=== PATIENT | female | born 1955 | race Caucasian/White ===

== ENCOUNTER → 2016-04-12 | Outpatient (CLI) | payer BC ==
[~2016-04-12] MED LIST: ASCO100025 PO; ATEN100T PO; CHOL20003 PO; CLON0.1T PO; CLON0.2T PO; CYAN50008 PO; ESTR1PAT4 TD; FOLI1TAB10 PO; GLUTATHIONE PO; HYDR-3729 PO; HYDR25TA4 PO; IBUP-1773 PO; L. A1CAP7 PO; LISI40TA PO; MTHF PO; OMG1KC PO; POTA10TA10 PO; PREGNENOLONE PO; PROG100C6 PO; S-AD400T3 PO; SERENITY PO; THYR60TA2 PO; [UNRECOGNIZED DRUG - OTHER] PO; [UNRECOGNIZED DRUG - OTHER] PO
--- OUTSIDE RECORDS SUMMARY | 2016-04-12 07:34 | XMS REPORT | Continuity of Care Document ---
Author Author [facility] Organization [facility] Address Unknown Phone Unavailable Care Team Providers Care Trace Clerk Name Role Phone Rachana Davalos PCP [phone] Source Comments Some departments are not documenting in the electronic medical record. If you do not see the information that you expected, contact Release of Information in the Health Information Management department at [phone] for further assistance in locating additional records.[facility] Active Allergies and Adverse Reactions No Known Allergies Current Medications Prescription Sig. Disp. Refills Start End Date Status Date progesterone, Take 100 mg by mouth Active micronized(+) daily. (PROMETRIUM) 100 mg capsule cloNIDine (CATAPRES-TTS Apply 1 Patch to top of Active 2) 0.2 mg/day patch skin as directed every 7 days. atenolol (TENORMIN) 100 Take 100 mg by mouth Active mg tablet daily. lisinopril (PRINIVIL; Take 40 mg by mouth Active ZESTRIL) 20 mg tablet daily. DOCOSAHEXANOIC ACID/EPA Take by mouth. Active (FISH OIL PO) cyanocobalamin (VITAMIN Inject 1,000 mcg to Active B-12, RUBRAMIN) 1,000 area(s) as directed every mcg/mL injection 30 days. magnesium Active Lactobacillus rhamnosus Take by mouth twice Active GG (LACTOBACILLUS daily with meals. RHAMNOSUS (GG)) 15 billion cell cpSP Prasterone (DHEA) (DHEA) Take by mouth. Active 50 mg cap GLUTATHIONE PO Take by mouth. Active folic acid (FOLVITE) 1 mg Take 1 mg by mouth daily. Active tablet ERGOCALCIFEROL (VITAMIN Take by mouth. Active D2) (VITAMIN D PO) ASCORBATE CALCIUM Take by mouth. Active (VITAMIN C PO) estradiol(+) Apply 1 Patch to top of Active (VIVELLE-DOT) 0.1 mg/24 skin as directed twice hr patch weekly. MULTIVITAMINS WITH Take by mouth. Active FLUORIDE (MULTI-VITAMIN PO) hydrochlorothiazide Take 25 mg by mouth Active (HYDRODIURIL) 25 mg daily. tablet triamcinolone acetonide Apply to affected area Active (KENALOG) 0.1 % topical twice daily. 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
== END ==
LOC: LAB 07:30
PROVIDERS: ATTEND Nurse Practitioner Family
DX: E16.2 Hypoglycemia, unspecified (principal)
CPT/HCPCS: 36415; 82951; 82952; 82962; 83525

== ENCOUNTER 2016-12-03 05:42 | Outpatient (CLI) | payer BC ==
[~2016-12-03] VITALS: Ht 172.7 cm; Wt 65.3 kg
[2016-12-03] MEDS ORDERED: PARO7.5C PO (16:08)
[2016-12-03] MEDS ORDERED: MULT-1067 PO (16:08)
[2016-12-03] MEDS ORDERED: FLUT16SP22 NS (16:08)
[2016-12-03] MEDS ORDERED: SULF1TAB35 PO (16:08)
[2016-12-03] MEDS ORDERED: [UNRECOGNIZED DRUG - OTHER] SQ (16:08)
[2016-12-03] MEDS ORDERED: LIRA0.6P3 SQ (16:08)
[2016-12-03] MEDS ORDERED: LEVO1CAP2 PO (16:08)
== END 2016-12-03 16:09 ==
LOC: PREOP 05:42
PROVIDERS: ATTEND Surgery
DX: Z01.818 Encounter for other preprocedural examination (principal); L02.31 Cutaneous abscess of buttock

== ENCOUNTER 2016-12-06 08:42 | Day surgery (SDC) | payer BC ==
[~2016-12-06] VITALS: Ht 172.7 cm; Wt 65.3 kg
[~2016-12-06 08:42] MED LIST changes: +FLUT16SP22 NS; +LEVO1CAP2 PO; +LIRA0.6P3 SQ; +MULT-1067 PO; +PARO7.5C PO; +SULF1TAB35 PO; +[UNRECOGNIZED DRUG - OTHER] SQ
--- OUTSIDE RECORDS SUMMARY | 2016-12-06 08:47 | XMS REPORT | Clinical Summary ---
Author Author [facility] Organization [facility] Address Unknown Phone Unavailable Care Team Providers Care Computer System Validation Specialist Name Role Phone PCP Unavailable Source Comments Some departments are not documenting in the electronic medical record. If you do not see the information that you expected, contact Release of Information in the Health Information Management department at [phone] for further assistance in locating additional records.[facility] Allergies No Known Allergies Current Medications Prescription Sig. 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
[2016-12-06] MEDS ORDERED: ceFAZolin 1,000 MG (ANCEF) VIAL ONE ×2 (09:18→09:22)
[2016-12-06] MEDS ORDERED: NS (IVPB) 50 ML ONE ×2 (09:19→09:22)
[2016-12-06] MEDS ORDERED: ceFAZolin 1 GM/NS 50 ML IVPB IV ONE ×2 (09:30)
[2016-12-06 09:58] VITALS: BP 175/95
[2016-12-06] MEDS ORDERED: LACTATED RINGERS 1,000 ML IV PRN (10:12)
[2016-12-06] MEDS ORDERED: BUP/EPI 0.5% 1:200,000 (MARCAINE) 10ML VIAL IJ ONE (10:43)
[2016-12-06] MEDS ORDERED: proPOfol 200 MG/20 ML (DIPRIVAN) VIAL IV ONE (10:50)
[2016-12-06] MEDS ORDERED: LIDOCAINE PF 2% 5 ML (XYLOCAINE) VIAL ONE (10:50)
[2016-12-06] MEDS ORDERED: MIDAZOLAM 2 MG/2 ML (VERSED) VIAL ONE (10:50)
[2016-12-06] MEDS ORDERED: fentaNYL INJECTION 100 MCG/2 ML AMP ONE (10:50)
[2016-12-06] MEDS ORDERED: ONDANSETRON 4 MG/2 ML (SDV) Z0FRAN ONE (10:53)
[2016-12-06] MEDS ORDERED: SEVOFLURANE (ULTANE) 15 ML INHAL SOLN ONE ×5 (10:53→12:41)
[2016-12-06] MEDS ORDERED: LACTATED RINGERS 1,000 ML IV ONE ×2 (10:53→11:47)
--- NOTE | 2016-12-06 11:14 | Progress Note-Pre Operative ---
Pre-Operative Progress Note H&P Reviewed The H&P was reviewed, patient examined and no changes noted. Date Seen by Provider: Dec 06, 2016 Time Seen by Provider: 11:12 Date H&P Reviewed: Dec 06, 2016 Time H&P Reviewed: 11:15 Pre-Operative Diagnosis: left buttock abscess, screening colonoscopy REGINO MCFADDEN APRN Dec 06, 2016 11:14 am
[2016-12-06] MEDS ORDERED: HYDR-3816 PO (12:27)
[2016-12-06] MEDS ORDERED: ONDANSETRON 4 MG/2 ML (SDV) Z0FRAN IVP PRN (12:30)
[2016-12-06] MEDS ORDERED: morphine INJ 10 MG/ML 1ML (SYR OR VIAL) IVP PRN (12:30)
[2016-12-06] MEDS ORDERED: HYDROcodone/APAP 5 MG/325 MG (LORTAB) TAB PO ONE (12:30)
[2016-12-06] MEDS ORDERED: ACETAMINOPHEN 325 MG TABLET/CAPLET (TYLENOL) PO PRN (12:30)
--- NOTE | 2016-12-06 12:31 | Discharge Inst-Surgical ---
D/C Lap Instructions-KIDO New, Converted, or Re-Newed RX: RX on Chart Follow Up Appt in 2 weeks Activity as tolerated No driving for 24 hours No [address] while on pain medications Incentive Spirometry use every 2 hours while awake High Fiber Diet 25g or more per day Avoid Alcohol, Caffeine, Spicy [place] and Acid foods. Drink 64 fluid oz or more of fluids per day. Bathing instructions: May shower Operative Area Clean/Dry; Keep incision clean/dry Symptoms to Report: Fever over 101 degree F, Nausea/Vomiting If any problems/questions: Contact your physician or go to Emergency Room REGINO MCFADDEN APRN Dec 06, 2016 12:30
--- NOTE | 2016-12-06 12:37 | Progress Note-Post Operative ---
Post-Operative Progess Note Surgeon (s)/Emotional Support Teacher (s) Surgeon Dr. Gabriel Plaza M.D. Emotional Support Teacher: Valdemar Mcfadden APRN Pre-Operative Diagnosis left buttock abscess, screening colonoscopy Post-Operative Diagnosis Left buttock cyst, Melanosis coli, pedunculated rectal polyp, chronic stage II external and internal hemorrhoids Procedure & Operative Findings Date of Procedure 12/06/16 Procedure Performed/Findings Excision of left buttock cyst and Colonoscopy with snare polypectomy Anesthesia Type GET Estimated Blood Loss Estimated blood loss (mL): Minimal Specimens/Packing Specimens Removed Left Buttock Cyst VALDEMAR MCFADDEN TIRE BUFFER Dec 06, 2016 12:37
[2016-12-06 13:47] VITALS: BP 176/93
[2016-12-06 14:06] VITALS: BP 189/95
[2016-12-06 14:40] VITALS: BP 147/86
[2016-12-06 15:06] VITALS: BP 147/86
[2016-12-06 15:42] VITALS: BP 147/86
--- NOTE | 2016-12-07 02:24 | OPERATIVE REPORT ---
DATE OF SERVICE: 12/06/2016 ATTENDING TOOL MACHINE SET UP OPERATOR: Rachana Davalos D.N.P. PREOPERATIVE DIAGNOSES: Left buttock infected inclusion cyst. Screening colonoscopy. POSTOPERATIVE DIAGNOSES: Chronically infected inclusion cyst of the left buttock, approximately 2 cm in size. Chronic stage II external and internal hemorrhoids. Diffuse melanosis coli. Pedunculated polyp of the rectum, approximately 3 to 4 mm in size. PROCEDURE: Excision left buttock cyst, 2 cm in size, colonoscopy with snare polypectomy. SURGEON: Dr. Bray. ANESTHESIA: General laryngeal mask airway. ESTIMATED BLOOD LOSS: Minimal. FINDINGS: Left buttock chronic infected inclusion cyst, approximately 2 mm in size. Chronic stage II external and internal hemorrhoids, diffuse melanosis coli due to [id number]-ibi-uqymhsq laxative, pedunculated polyp of the rectum approximately 3 to 4 mm in size, which was fully excised at the stomach. The remainder of the colon was normal. DISPOSITION: The patient tolerated the procedure well. INDICATIONS: The patient is a 60-year-old female who was referred over to us for pain in the left buttock. She reports that she had noted a bump on the left buttock and was [place] an airplane and this did open and drained a bloody drainage. She has been seen by her physician and cultured and found to be consistent with Staph aureus. She was on antibiotics and the lesion had decreased in size; however, has persisted and continued to be painful. Upon examination, there was a palpable lesion in the left buttock, which was hard consistent with a chronic abscess and inclusion cyst, which is approximately 2 cm in size. She is also in need of a colonoscopy. Her last colonoscopy was approximately 10 years ago. She does have a significant history of constipation and does take a number of vywl-gbg-cpinexo laxatives. DESCRIPTION OF PROCEDURE: The patient was brought to the operating room, laid supine on the table. After adequate IV pain and sedative medications and general laryngeal mask airway intubation, the patient was placed in lithotomy position and the perineum was prepped and draped in a standard surgical fashion. The lesion was then anesthetized using 0.5% Marcaine with epinephrine and a skin incision made using a 15 blade. A chronic-appearing cyst as well as chronic inflammatory granulation tissue was identified. This was totally excised using Metzenbaum scissors to the subcutaneous fat. Good hemostasis was achieved using electrocautery. The subcutaneous tissue was then reapproximated using 3-0 Vicryl interrupted sutures. Skin was closed using 4-0 nylon interrupted sutures. The wound was then cleaned and covered with a sterile dressing. The patient tolerated this portion of the procedure well. She will be instructed to keep the area clean and dry and to finish out her course of antibiotics. We will have her follow up in approximately one week to remove the sutures. Under the same anesthesia, we then proceeded with the colonoscopy portion of the procedure. A digital rectal examination was performed, which revealed chronic stage II external and internal hemorrhoids, not actively edematous or inflamed and no bleeding. Normal sphincter tone was felt and there were no palpable masses. The endoscope was then intubated into the anus and rectum and gently insufflated. We advanced the endoscope through the valves of Hutchins of the rectum and at approximately the second valve, a pedunculated polyp approximately 3 to 4 mm in size was identified. This was excised at its stalk using a snare and electrocautery with visualization of good hemostasis. The polyp was sent to pathology. We then proceeded to the sigmoid colon where no diverticulosis was identified. There was a significant melanosis coli distributed throughout the entirety of the colon and rectum consistent with chronic laxative use. Endoscope was then advanced to the remainder of the descending, transverse and ascending colon to the cecum. No other lesions were identified. The endoscope was then slowly withdrawn while taking a second look and suctioning of residual air with no additional findings. The patient tolerated the procedure well. We will have her proceed with cessation of laxatives and to start a high-fiber diet with at least 30 grams of fiber per day as well as at least 64 fluid ounces of water daily to promote soft stools on a daily basis. We will also await the biopsy results of the polyp. Job ID: [id number] DocumentID: [id number] Dictated Date: 12/06/2016 12:52:11 Aluminum Polisher Date: 12/07/2016 02:23:30 Dictated By: EMILY BRAY MD
== END 2016-12-06 15:40 | disposition home or self-care (01) ==
LOC: SDC 08:42
PROVIDERS: ATTEND Surgery
DX: Z12.11 Encounter for screening for malignant neoplasm of colon (principal); D12.8 Benign neoplasm of rectum; K63.89 Other specified diseases of intestine; K64.1 Second degree hemorrhoids; L72.0 Epidermal cyst; K59.00 Constipation, unspecified; I10 Essential (primary) hypertension; E04.1 Nontoxic single thyroid nodule; G47.33 Obstructive sleep apnea (adult) (pediatric); Z79.899 Other long term (current) drug therapy
CPT/HCPCS: 87081; 88304; 88305

== ENCOUNTER → 2017-04-02 | Outpatient (CLI) | payer BC ==
[~2017-04-02] MED LIST changes: +HYDR-3816 PO
--- NOTE | 2017-04-02 10:58 | Diagnostic Imaging Report ---
EXAMINATION: Bilateral breast ultrasound. INDICATION: Bilateral breast lumps By history the patient has palpable lumps in both breasts. The diagnostic mammogram performed earlier today in conjunction with the study failed to show any discrete mass identified. On this exam there is a 7 x 6 x 7 MM hypoechoic lesion with through-transmission in the 1-2 o'clock position of the right breast roughly 4 CM from the nipple. This has the appearance of a small cyst. There is no other discrete solid or cystic mass identified. If clinical concern regarding a palpable abnormality persists, then biopsy should still be considered. IMPRESSION: There is a small benign-appearing cyst in the right breast. There is no other evidence of malignancy. Clinical followup is recommended. ACR BI-RADS Category 1: Negative. Dictated on workstation # [id number]
--- NOTE | 2017-04-02 12:29 | Diagnostic Imaging Report ---
EXAMINATION: Digital mammogram bilateral screening. INDICATION: Screening. COMPARISON: This study was compared to the prior exams of 09/30/2013, 02/16/2013, and 01/25/2012. The current study was also evaluated with a Computer Aided Detection (CAD) system. Originally, this exam was scheduled as a screening exam. However, at the time of the study, the patient did note that she had lumps in both breasts. She felt that the lumps were stable, but she did state that her referring physician made provisions for an ultrasound examination. FINDINGS: The fibroglandular tissue in both breasts is dense. This does limit the sensitivity of this exam. When compared to the previous study, there does not appear to have been any significant change. There is no primary or secondary sign of malignancy noted. IMPRESSION: There is no evidence of malignancy. Ultrasound of both breasts is pending for further evaluation. ACR BI-RADS Category 0: Incomplete. (Needs additional imaging evaluation). Result letter will be mailed to the patient. Note: At least 10% of breast cancer is not imaged by mammography. Dictated by: Dictated on workstation # [id number]
== END ==
LOC: RAD 08:07
PROVIDERS: ATTEND Nurse Practitioner Family
DX: Z12.31 Encounter for screening mammogram for malignant neoplasm of breast (principal); N60.01 Solitary cyst of right breast
CPT/HCPCS: 77067

== ENCOUNTER → 2017-07-23 | Outpatient (CLI) | payer BC ==
[~2017-07-23] MED LIST changes: +CATHETER FLUSH 10 ML SYR IV PRN; +HYDR-34 PO; -HYDR-3816 PO; +REGADENOSON 0.4 MG/5 ML SYR (LEXISCAN) IV ONE
[2017-07-23 09:20] VITALS: BP 229/104
[2017-07-23 09:22] VITALS: BP 214/103
[2017-07-23 09:31] VITALS: BP 193/89
--- NOTE | 2017-07-24 13:32 | STRESS TEST ---
DATE OF SERVICE: 07/23/2017 PROCEDURE: Resting and post regadenoson technetium-99m Tetrofosmin SPECT CT imaging CLINICAL DIAGNOSES: Shortness of breath, hypertension. ORDERING PHYSICIAN: Kathryn Oates APRN OTHER PHYSICIAN: Dr. Mccrary. Baseline images were carried out after injection of 10.94 mCi technetium-99m Tetrofosmin. This was followed by 0.4 mg regadenoson and 30.2 mCi of technetium-99m Tetrofosmin for stress imaging. The electrocardiogram showed sinus rhythm at baseline and it did not change significantly with the regadenoson infusion. The patient noted some dizziness and a feeling of flushing following regadenoson infusion, which resolved in a few minutes. Overall, she tolerated the procedure well. Review of images at rest and following stress does not indicate any significant perfusion defects consistent with significant myocardial ischemia or infarction. Gated images show normal global left ventricular systolic function with normal regional wall motion. Left ventricular ejection fraction is calculated to be 77%. Left ventricular end diastolic volume is 39 mL. TID is absent (0.98). CONCLUSIONS: 1. No evidence of significant myocardial ischemia or infarction on this study. 2. Normal regional wall motion. 3. Normal global left ventricular systolic function with a calculated ejection fraction of 77%. Job ID: [id number] DocumentID: [id number] Dictated Date: 07/24/2017 08:20:51 Cytogeneticist Date: 07/24/2017 13:31:38 Dictated By: LEANNE MCCRARY MD, MA, FACP, FACC, MTDD
== END ==
LOC: CARD 07:38
PROVIDERS: ATTEND Nurse Practitioner Family
DX: I10 Essential (primary) hypertension (principal); E03.8 Other specified hypothyroidism; R06.09 Other forms of dyspnea
CPT/HCPCS: 78452; 93017

== ENCOUNTER → 2017-08-16 | Outpatient (CLI) | payer BC ==
[~2017-08-16] MED LIST changes: -CATHETER FLUSH 10 ML SYR IV PRN; -REGADENOSON 0.4 MG/5 ML SYR (LEXISCAN) IV ONE
== END ==
LOC: CARD 13:27
PROVIDERS: ATTEND Nurse Practitioner Family
DX: I10 Essential (primary) hypertension (principal); E03.8 Other specified hypothyroidism; R06.09 Other forms of dyspnea
CPT/HCPCS: 93306

== ENCOUNTER → 2017-09-03 | Outpatient (CLI) | payer BC ==
--- NOTE | 2017-09-03 16:07 | Diagnostic Imaging Report ---
INDICATION: Pulmonary hypertension. COMPARISON: None. FINDINGS: Two views of the chest are obtained. Heart size is mildly enlarged. There is no central venous distention. No pneumothorax, mediastinal widening or pleural fluid. Thoracic aorta is tortuous. The lungs are clear. Osseous structures appear unremarkable. IMPRESSION: No acute cardiopulmonary abnormality is suspected. There is mild cardiomegaly without evidence of failure. Dictated by: Dictated on workstation # [id number]
== END ==
LOC: RAD 15:37
PROVIDERS: ATTEND Nurse Practitioner Family
DX: I27.21 Secondary pulmonary arterial hypertension (principal); I51.7 Cardiomegaly
CPT/HCPCS: 71046

== ENCOUNTER 2017-09-16 18:16 | Observation (INO) | payer BC ==
[~2017-09-16] VITALS: Ht 172.7 cm; Wt 65.8 kg
[~2017-09-16 18:16] MED LIST changes: -CARV25TA PO; -DOXA2TAB2 PO; -ESTR1PAT75 TD; -FLUT15.88 NS; -RT-ALBUTEROL SULF 2.5 MG/3 ML PRE-MIX VIAL INH ONE
--- OUTSIDE RECORDS SUMMARY | 2017-09-16 18:20 | XMS REPORT ---
Author Author [facility] Organization [facility] Address [address] [place] [address] Care Team Providers Care Dry Wall Finisher Name Role Phone DREA BLOOM Unavailable PROBLEMS Type Condition ICD9-CM Code EPM96-HR Code Onset Dates Condition Status SNOMED Code Problem Adjustment disorder with depressed mood F43.21 Active [id number] ALLERGIES No Information ENCOUNTERS Encounter Location Date Diagnosis [facility] [id number] [place] [phone] Jan, Adjustment disorder with depressed mood F43.21 [facility] [id number] [place] [phone] Jan, Adjustment disorder with depressed mood F43.21 [facility] [id number] [place] [phone] Dec, Adjustment disorder with depressed mood F43.21 [facility] [id number] [place] [phone] Feb, [facility] [id number] [place] [phone] Jan, [place] [id number] [place] [phone] Jan, IMMUNIZATIONS No Known Immunizations SOCIAL HISTORY Never Assessed REASON FOR VISIT BH intake, Depression. PLAN OF CARE Activity Details Follow Up 1 Week Reason:depression VITAL SIGNS MEDICATIONS Medication Instructions Dosage Frequency Start Date End Date Duration Status Atenolol Active Deplin Active Brisdelle Active Hydrochlorothiazide Active Fish Oil Active SMZ-TMP DS Active Victoza Active B-12 Active Vitamin C Active Thyroid Active Vitamin D-3 Active Potassium Chloride Active Lisinopril Active Fluticasone Furoate Active Clonidine HCl Active Triamcinolone Acetonide Active RESULTS No Results PROCEDURES Procedure Date Ordered Result Body Site Psych diagnostic evaluation, new patient Jan 14, 2017 INSTRUCTIONS MEDICATIONS ADMINISTERED No Known Medications
--- OUTSIDE RECORDS SUMMARY | 2017-09-16 18:20 | XMS REPORT | Clinical Summary ---
Author Author [facility] Organization [facility] Address Unknown Phone Unavailable Care Team Providers Care Milking Machine Technician Name Role Phone Carlos Davalos MD Unavailable Alison Godinez MD Unavailable Harjinder Jones MD Unavailable Rachana Davalos APRN PCP Source Comments Some departments are not documenting in the electronic medical record. 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
[2017-09-16] MEDS ORDERED: niCARdipine IV FOR DRIP 50 MG KIT ONE (18:26)
[2017-09-16] MEDS ORDERED: NS (IVPB) 250 ML ONE (18:27)
[2017-09-16 18:29] LABS: BASOPHILS % (AUTO) 0 % (0-10); EOSINOPHILS # (AUTO) 0.2 10^3/uL (0.0-0.3); EOSINOPHILS % (AUTO) 2 % (0-10); HEMATOCRIT 39 % (35-52); HEMOGLOBIN 13.8 G/DL (11.5-16.0); LYMPHOCYTES % (AUTO) 24 % (12-44); MEAN CORPUSCULAR HEMOGLOBIN 29 PG (25-34); MEAN CORPUSCULAR HGB CONC 36 G/DL (32-36); MEAN CORPUSCULAR VOLUME 82 FL (80-99); MEAN PLATELET VOLUME 9.3 FL (7.4-10.4); MONOCYTES # (AUTO) 0.6 X 10^3 (0.0-1.0); MONOCYTES % (AUTO) 8 % (0-12); NEUTROPHILS # (AUTO) 5.5 X 10^3 (1.8-7.8); NEUTROPHILS % (AUTO) 67 % (42-75); PLATELET COUNT 263 10^3/uL (130-400); RED BLOOD COUNT 4.74 10^6/uL (4.35-5.85); RED CELL DISTRIBUTION WIDTH 12.7 % (10.0-14.5); WHITE BLOOD COUNT 8.2 10^3/uL (4.3-11.0)
--- NOTE | 2017-09-16 18:29 | ED Cardiac General ---
History of Present Illness General Chief Complaint: Cardiac/General Problems Stated Complaint: HIGH BP Source: patient Exam Limitations: no limitations History of Present Illness Date Seen by Provider: Sep 16, 2017 Time Seen by Provider: 18:26 Initial Comments o ER with a global headache, nausea, hot flash and high blood pressure. She states that her blood pressure always runs high, she's taken "several" doses of her 0.1 mg clonidine tablets today in an attempt to lower the blood pressure. blood pressure on arrival on 2 different readings is 245/141 with heart rate of 59 sinus without ectopy. Timing/Duration: 4-6 hours Severity: moderate Prior CP/Workup: no prior chest pain NTG SL LIFE SCIENCE TECHNICAL OFFICER: No ASA po LIFE SCIENCE TECHNICAL OFFICER: No Associated Systoms: Headaches Allergies and Home Medications Allergies Coded Allergies: No Known Drug Allergies (Unverified , 08/02/15) Home Medications Ascorbic Acid 1,000 Mg Tablet.er, 1,000 MG PO DAILY, (Reported) Atenolol 100 Mg Tablet, 100 MG PO DAILY, (Reported) Cholecalciferol (Vitamin D3) 2,000 Unit Capsule, 2,000 UNIT PO DAILY, (Reported) Clonidine HCl 0.2 Mg Tablet, 0.2 MG PO TID PRN for BLOOD PRESSURE, (Reported) Cyanocobalamin (Vitamin B-12) 5,000 Mcg Tab.rapdis, 5,000 MCG PO DAILY, ( Reported) Fluticasone Propionate 16 Gm [place].susp, 2 SPRAY NS HS, (Reported) Hydrochlorothiazide 25 Mg Tablet, 25 MG PO DAILY, (Reported) Hydrocodone Bit/Acetaminophen 1 Each Tablet, 1 EACH PO Q4H PRN for PAIN-MILD TO MODERATE Prescribed by: REGINO MCFADDEN on 12/06/16 1227 L. Acidophilus/Bifid. Animalis 1 Each Cap.sprink, 1 EACH PO HS, (Reported) Levomefolate/Algal Oil 1 Each Capsule, 1 EACH PO DAILY, (Reported) Liraglutide 0.6 Mg/0.1 Ml Pen.injctr, 1.8 MG SQ HS, (Reported) Lisinopril 40 Mg Tablet, 40 MG PO DAILY, (Reported) Multivitamin/Iron/Folic Acid 1 Each Tablet, 1 EACH PO DAILY, (Reported) [place] 3 Polyunsat Fatty Acids 1,000 Mg Cap, 1,000 MG PO DAILY, (Reported) Paroxetine Mesylate 7.5 Mg Capsule, 7.5 MG PO HS, (Reported) Potassium Chloride 10 Meq Tablet.er, 10 MEQ PO DAILY, (Reported) S-Adenosylmethionine Sul Tosyl 400 Mg Tablet, 800 MG PO DAILY, (Reported) take 2 (400mg) tab Sulfamethoxazole/Trimethoprim 1 Each Tablet, 1 EACH PO BID, (Reported) Thyroid,Pork 60 Mg Tablet, 60 MG PO DAILY, (Reported) [5 Mthf] , 1 TAB PO BID, (Reported) [Gsh Glutathione] , 250 MG PO AC&PC, (Reported) [Pregnenolone] 50mg , 100 MG PO DAILY, (Reported) take 2 (50mg) tabs [Serenity] , 100 MG PO HS, (Reported) [glutithione] , 500 MG SQ M/TH, (Reported) [gut cleanse] , 1 TAB PO BID, (Reported) Patient Home Medication List Home Medication List Reviewed: Yes Review of Systems Constitutional: see HPI EENTM: No Symptoms Reported Respiratory: No Symptoms Reported Cardiovascular: No Symptoms Reported Gastrointestinal: No Symptoms Reported Genitourinary: No Symptoms Reported Musculoskeletal: no symptoms reported Endocrine: No Symptoms Reported Past Flefhbc-Fkncfh-Xquqss Hx Patient Social History Recent Foreign Travel: No Contact w/Someone Who Travel: No Recent Hopitalizations: No Seasonal Allergies Seasonal Allergies: Yes Past Medical History Tubal Ligation Sleep Apnea Currently Using CPAP: Yes Hypertension Reproductive Disorders: No Female Reproductive Disorders: Menstrual Problems Sexually Transmitted Disease: No HIV/AIDS: No Arthritis Anxiety Physical Exam Vital Signs Vital Signs - First Documented 09/16/17 18:20 Temp 98.4 Pulse 60 Resp 18 B/P (MAP) 245/141 (175) Pulse Ox 100 O2 Delivery Room Air Capillary Refill : General Appearance: No Apparent Distress, WD/WN, Other (moves all extremities, speech is clear, no neurologic deficit) HEENT: PERRL/EOMI, TMs Normal Neck: Full Range of Motion, Normal Inspection Respiratory: Normal Breath Sounds, No Accessory Muscle Use, No Respiratory Distress Gastrointestinal: Normal Bowel Sounds, Non Tender, Soft Neurologic/Psychiatric: Alert, Oriented x3, No Motor/Sensory Deficits Skin: Normal Color, Warm/Dry Other comments she does keep her eyes closed but opens them to talk. She has a GCS of 14 because, losing 1 point for that. Progress/Results/Core Measures Results/Orders Lab Results Laboratory Tests Test 09/16/17 18:20 09/16/17 19:23 Range/Units White Blood Count 8.2 4.3-11.0 10^3/uL Red Blood Count 4.74 4.35-5.85 10^6/uL Hemoglobin 13.8 11.5-16.0 G/DL Hematocrit 39 35-52 % Mean Corpuscular Volume 82 80-99 FL Mean Corpuscular Hemoglobin 29 25-34 PG Mean Corpuscular Hemoglobin Concent 36 32-36 G/DL Red Cell Distribution Width 12.7 10.0-14.5 % Platelet Count 263 130-400 10^3/uL Mean Platelet Volume 9.3 7.4-10.4 FL Neutrophils (%) (Auto) 67 42-75 % Lymphocytes (%) (Auto) 24 12-44 % Monocytes (%) (Auto) 8 0-12 % Eosinophils (%) (Auto) 2 0-10 % Basophils (%) (Auto) 0 0-10 % Neutrophils # (Auto) 5.5 1.8-7.8 X 10^3 Lymphocytes # (Auto) 2.0 1.0-4.0 X 10^3 Monocytes # (Auto) 0.6 0.0-1.0 X 10^3 Eosinophils # (Auto) 0.2 0.0-0.3 10^3/uL Basophils # (Auto) 0.0 0.0-0.1 10^3/uL Sodium Level 129 L 135-145 MMOL/L Potassium Level 3.2 L 3.6-5.0 MMOL/L Chloride Level 93 L 98-107 MMOL/L Carbon Dioxide Level 23 21-32 MMOL/L Anion Gap 13 5-14 MMOL/L Blood Urea Nitrogen 12 7-18 MG/DL Creatinine 0.71 0.60-1.30 MG/DL Estimat Glomerular Filtration Rate > 60 BUN/Creatinine Ratio 17 Glucose Level 127 H 70-105 MG/DL Calcium Level 9.4 8.5-10.1 MG/DL Total Bilirubin 0.6 0.1-1.0 MG/DL Aspartate Amino Transf (AST/SGOT) 20 5-34 U/L Alanine Aminotransferase (ALT/SGPT) 15 0-55 U/L Alkaline Phosphatase 79 40-136 U/L Troponin I < 0.30 <0.30 NG/ML B-Type Natriuretic Peptide 156.0 H <100.0 PG/ML Total Protein 7.0 6.4-8.2 GM/DL Albumin 4.7 H 3.2-4.5 GM/DL Urine Color YELLOW Urine Clarity CLEAR Urine pH 8 5-9 Urine Specific [place] 1.010 L 1.016-1.022 Urine Protein NEGATIVE NEGATIVE Urine Glucose (UA) NEGATIVE NEGATIVE Urine Ketones NEGATIVE NEGATIVE Urine Nitrite NEGATIVE NEGATIVE Urine Bilirubin NEGATIVE NEGATIVE Urine Urobilinogen NORMAL NORMAL MG/DL Urine Leukocyte Esterase NEGATIVE NEGATIVE Urine RBC (Auto) NEGATIVE NEGATIVE Urine RBC RARE /HPF Urine WBC RARE /HPF Urine Crystals NONE /LPF Urine Bacteria NEGATIVE /HPF Urine Casts NONE /LPF Urine Mucus NEGATIVE /LPF Urine Culture Indicated NO My Orders Orders - VAHE BOWDEN APRN Ns (Ivpb) (Sodium C... W/Nicardipine Iv (09/16/17 18:30) Cbc With Automated Diff (09/16/17 18:25) Comprehensive Metabolic Panel (09/16/17 18:25) Ua Culture If Indicated (09/16/17 18:25) Chest 1 View, Ap/Pa Only (09/16/17 18:25) Ct Head Wo (09/16/17 18:25) Iv Heplock-Insert (Order) (09/16/17 18:25) Nicardipine Iv For Drip (Cardene I.V. (O (09/16/17 18:26) Ns (Ivpb) (Sodium Chloride 0.9%) (09/16/17 18:27) Ondansetron Injection (Zofran Injectio (09/16/17 18:45) Ondansetron Injection (Zofran Injectio (09/16/17 19:30) Promethazine Injection (Phenergan Injec (09/16/17 19:30) BNP (09/16/17 19:30) Furosemide Injection (Lasix Injection) (09/16/17 19:30) Troponin I (09/16/17 19:49) Ekg Tracing (09/16/17 19:50) Amlodipine Tablet (Norvasc Tablet) (09/16/17 20:15) Medications Given in ED Current Medications Medications Dose Ordered Sig/Christian Route Start Time Stop Time Status Last Admin Dose Admin Amlodipine Besylate 5 mg ONCE ONCE PO 09/16/17 20:15 09/16/17 20:16 DC 09/16/17 20:21 5 MG Furosemide 40 mg ONCE ONCE IVP 09/16/17 19:30 09/16/17 19:32 DC 09/16/17 19:48 40 MG Ondansetron HCl 4 mg ONCE ONCE IVP 09/16/17 18:45 09/16/17 18:46 DC 09/16/17 18:45 4 MG Ondansetron HCl 4 mg ONCE ONCE IVP 09/16/17 19:30 09/16/17 19:31 DC 09/16/17 19:28 4 MG Promethazine HCl 12.5 mg ONCE ONCE IVP 09/16/17 19:30 09/16/17 19:31 DC 09/16/17 19:28 12.5 MG Vital Signs/I&O 09/16/17 18:20 Temp 98.4 Pulse 60 Resp 18 B/P (MAP) 245/141 (175) Pulse Ox 100 O2 Delivery Room Air Diagnostic Imaging Diagonstic Imaging: Xray Plain Films/CT/US/NM/MRI: chest Comments NAME: SARMAD FLORES [employer] REC#: [id number] PT STATUS: REG ER : 1955 PHYSICIAN: VAHE BOWDEN APRN ADMIT DATE: 09/16/17/ER Draft Date of Exam:09/16/17 CHEST 1 VIEW, AP/PA ONLY INDICATION: Chest pain with elevated blood pressure. COMPARISON: 09/03/2017. FINDINGS: Central vascular indistinctness with interstitial opacities are present. Heart is borderline enlarged. No pneumothorax. No pleural effusion. IMPRESSION: Central vascular congestion and heterogeneous opacities are likely due to interstitial edema. However, an atypical pneumonia or viral bronchitis could have this appearance in appropriate setting. Dictated on workstation # [id number] Dict: 09/16/171918 Trans: 09/16/171926 [id number] Interpreted by: ANIL BRICEÑO MD Electronically signed by: NAME: SARMAD FLORES [employer] REC#: [id number] PT STATUS: REG ER : 1955 PHYSICIAN: VAHE BOWDEN APRN ADMIT DATE: 09/16/17/ER Draft Date of Exam:09/16/17 CT HEAD WO PROCEDURE: CT head without contrast. TECHNIQUE: Multiple contiguous axial images were obtained through the brain without the use of intravenous contrast. INDICATION: Hypertension. COMPARISON: None. FINDINGS: No acute intracranial hemorrhage, mass effect, or edema is seen. The hopkins-white junction is preserved. The ventricles appear normal. No acute focal abnormality is suspected. The paranasal sinuses and mastoids are clear as visualized. IMPRESSION: No evidence of an acute intracranial abnormality. Dictated on workstation # [id number] Dict: 09/16/171918 Trans: 09/16/171926 [id number] Interpreted by: MILES MCKEON DO Electronically signed by: Departure Communication (Admissions) Time/Spoke to Admitting Phy: 19:52 (Ana Laura) Time/Spoke to Consulting Phy: 21:40 (leila) 1831- cardene drip started at this time 5 mg/hr. 1906-BP down to 190/91. Cardene gtt decreased to 2.5mg/hr. To CT at this time for CT head as she does have headache. 1950- her blood pressure is down to 186/86. She states that this is about what she runs on an average day. Cardene drip continues at 2.5 mg per hour. She denies chest pain or shortness of breath despite the chest x-ray finding of questionable pulmonary edema. Troponin and BNP are pending. Discussed with Dr. Du. We'll admit to the ICU, consult cardiology.we've turned off her Cardene drip at this time. 40 mg of Lasix IV given and 5 mg of by mouth Norvasc given. 2139- resting in bed quietly with eyes closed. blood pressure 148/78, heart rate remains 60 sinus without ectopy. Discussed with Dr. Kaminski, her thermospray operator. Recommends Cardura2 mg by mouth every 4 hours when necessary systolic blood pressure greater then 180 and he will consult in the morning. Impression Primary Impression: Hypertensive crisis Disposition: 01 HOME, SELF-CARE Condition: Stable Admissions Decision to Admit Reason: Admit from ER (General) Decision to Admit/Date: Sep 16, 2017 Time/Decision to Admit Time: 21:41 Departure-Patient Inst. Referrals: NANI MCCABE DO (PCP) Primary Care Physician SOURAV MCCABE DNP (Family) Primary Care Physician VAHE BOWDEN APRN Sep 16, 2017 18:29
[2017-09-16] MEDS: niCARdipine IV 50 MG in NS (IVPB) 230 ML IV SCH (18:38)
[2017-09-16] MEDS ORDERED: ONDANSETRON 4 MG/2 ML (SDV) Z0FRAN IVP ONE ×2 (18:45→19:30)
[2017-09-16 19:03] LABS: ALANINE AMINOTRANSFERASE 15 U/L (0-55); ALBUMIN 4.7 GM/DL (3.2-4.5); ALKALINE PHOSPHATASE 79 U/L (40-136); BILIRUBIN,TOTAL 0.6 MG/DL (0.1-1.0); BUN/CREATININE RATIO 17; CALCIUM 9.4 MG/DL (8.5-10.1); CARBON DIOXIDE 23 MMOL/L (21-32); CHLORIDE 93 MMOL/L (98-107); CREATININE SERUM 0.71 MG/DL (0.60-1.30); GFR ESTIMATED > 60; GLUCOSE 127 MG/DL (70-105); POTASSIUM 3.2 MMOL/L (3.6-5.0); SODIUM 129 MMOL/L (135-145)
--- NOTE | 2017-09-16 19:27 | Diagnostic Imaging Report ---
INDICATION: Chest pain with elevated blood pressure. COMPARISON: 09/03/2017. FINDINGS: Central vascular indistinctness with interstitial opacities are present. Heart is borderline enlarged. No pneumothorax. No pleural effusion. IMPRESSION: Central vascular congestion and heterogeneous opacities are likely due to interstitial edema. However, an atypical pneumonia or viral bronchitis could have this appearance in appropriate setting. Dictated by: Dictated on workstation # [id number]
--- NOTE | 2017-09-16 19:28 | Diagnostic Imaging Report ---
PROCEDURE: CT head without contrast. TECHNIQUE: Multiple contiguous axial images were obtained through the brain without the use of intravenous contrast. INDICATION: Hypertension. COMPARISON: None. FINDINGS: No acute intracranial hemorrhage, mass effect, or edema is seen. The hopkins-white junction is preserved. The ventricles appear normal. No acute focal abnormality is suspected. The paranasal sinuses and mastoids are clear as visualized. IMPRESSION: No evidence of an acute intracranial abnormality. Dictated by: Dictated on workstation # [id number]
[2017-09-16] MEDS ORDERED: FUROSEMIDE 40 MG/4 ML INJ (LASIX) IVP ONE (19:30)
[2017-09-16] MEDS ORDERED: PROMETHAZINE INJ 25 MG/ML (PHENERGAN) AMP IVP ONE (19:30)
[2017-09-16 19:35] LABS: BILIRUBIN,URINE NEGATIVE (NEGATIVE); CLARITY,URINE CLEAR; COLOR,URINE YELLOW; GLUCOSE, URINE (UA) NEGATIVE (NEGATIVE); KETONES,URINE NEGATIVE (NEGATIVE); LEUKOCYTE ESTERASE ,URINE NEGATIVE (NEGATIVE); NITRITE,URINE NEGATIVE (NEGATIVE); PH,URINE 8 (5-9); PROTEIN,URINE NEGATIVE (NEGATIVE); UROBILINOGEN,URINE NORMAL (NORMAL)
[2017-09-16 20:03] LABS: BACTERIA,URINE NEGATIVE /HPF; RBC,URINE RARE /HPF; WBC,URINE RARE /HPF
[2017-09-16] MEDS ORDERED: amLODIPine 5 MG (NORVASC) TAB PO ONE (20:15)
--- OUTSIDE RECORDS SUMMARY | 2017-09-16 21:47 | XMS REPORT | Clinical Summary ---
Author Author [facility] Organization [facility] Address Unknown Phone Unavailable Care Team Providers Care Medical Data Entry Clerk Name Role Phone Carlos Davalos MD Unavailable Alison Godinez MD Unavailable Harjinder Jones MD Unavailable Rachana Davalos APRN PCP Source Comments Some departments are not documenting in the electronic medical record. 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
[2017-09-16 22:05] VITALS: BP 180/87
[2017-09-16] MEDS ORDERED: PROMETHAZINE INJ 25 MG/ML (PHENERGAN) AMP IV PRN (22:30)
[2017-09-16] MEDS: doxAzosin 2 MG (CARDURA) TAB PO PRN (22:31)
[2017-09-16] MEDS: NS IV 1000 ML 1,000 ML IV SCH (22:49)
[2017-09-16] MEDS: POTASSIUM CL 10 MEQ/50 ML IVPB (PRE-MIX) IV SCH ×2 (22:49→23:51)
[2017-09-16] MEDS: ONDANSETRON 4 MG/2 ML (SDV) Z0FRAN IV PRN (23:07)
[2017-09-16 23:10] VITALS: BP 180/87
[2017-09-16] MEDS ORDERED: RT-ALBUTEROL SULF 2.5 MG/3 ML PRE-MIX VIAL INH PRN (23:30)
[2017-09-17 00:16] VITALS: BP 159/69
[2017-09-17] MEDS: POTASSIUM CL 10 MEQ/50 ML IVPB (PRE-MIX) IV SCH ×2 (00:54→02:09)
[2017-09-17] MEDS: ONDANSETRON 4 MG/2 ML (SDV) Z0FRAN IV PRN (02:14)
[2017-09-17 04:06] VITALS: BP 148/78
[2017-09-17] MEDS: niCARdipine IV 50 MG in NS (IVPB) 230 ML IV SCH (05:47)
[2017-09-17 06:25] LABS: BASOPHILS % (AUTO) 0 % (0-10); EOSINOPHILS % (AUTO) 0 % (0-10); HEMATOCRIT 39 % (35-52); HEMOGLOBIN 13.8 G/DL (11.5-16.0); LYMPHOCYTES # (AUTO) 0.8 X 10^3 (1.0-4.0); LYMPHOCYTES % (AUTO) 10 % (12-44); MEAN CORPUSCULAR HEMOGLOBIN 29 PG (25-34); MEAN CORPUSCULAR HGB CONC 35 G/DL (32-36); MEAN CORPUSCULAR VOLUME 81 FL (80-99); MONOCYTES # (AUTO) 0.5 X 10^3 (0.0-1.0); MONOCYTES % (AUTO) 6 % (0-12); NEUTROPHILS # (AUTO) 6.1 X 10^3 (1.8-7.8); NEUTROPHILS % (AUTO) 83 % (42-75); PLATELET COUNT 235 10^3/uL (130-400); RED BLOOD COUNT 4.84 10^6/uL (4.35-5.85); RED CELL DISTRIBUTION WIDTH 12.9 % (10.0-14.5); WHITE BLOOD COUNT 7.4 10^3/uL (4.3-11.0)
[2017-09-17 06:51] LABS: ALANINE AMINOTRANSFERASE 15 U/L (0-55); ALBUMIN 4.7 GM/DL (3.2-4.5); ALKALINE PHOSPHATASE 77 U/L (40-136); BUN/CREATININE RATIO 16; CALCIUM 9.2 MG/DL (8.5-10.1); CARBON DIOXIDE 23 MMOL/L (21-32); CHLORIDE 90 MMOL/L (98-107); GFR ESTIMATED > 60; GLUCOSE 138 MG/DL (70-105); POTASSIUM 3.7 MMOL/L (3.6-5.0); SODIUM 128 MMOL/L (135-145); TOTAL PROTEIN 7.1 GM/DL (6.4-8.2)
[2017-09-17] MEDS ORDERED: CATHETER FLUSH 10 ML SYR IV PRN (07:15)
[2017-09-17 07:30] VITALS: BP 173/78
--- NOTE | 2017-09-17 08:04 | Consultation-Cardiology ---
HPI-Cardiology Cardiology Consultation: Date of Consultation 09/17/17 Time Seen by Provider: 09:20 Date of Admission 09-16-17 Attending Physician Marlin Johns MD [facility] Admitting Physician Carlos Davalos DO Consulting Physician Marlin Johns MD HPI: Chief Complaint: Uncontrolled hypertension Ms. Serrano is a 61 year old female admitted to 407 from the ED with uncontrolled hypertension and headache. She denies any c/o CP, palpitations, syncope or near syncope. No c/o LE edema. She reports over the course of the last few days she has felt increasingly unwell. She reports headache which has been constant and progressive. She states she has been taking her BP at home and noted it to be elevated. She reports she has been taking all her medication as Rx. She states she has been taking Clonidine several times a day to "try and get ahead" of her blood pressure, but it remained high. She states she noticed her HR to be getting low into the upper 40's to mid-50's. She states since she could not get her BP down she came to the ED. She reports she did have some nausea earlier this morning and a continued headache. She reports the headache is better, but not completely resolved. Review of Systems-Cardiology Review of Systems Constitutional: No chills, No fever Eyes: No vision change Ears/Nose/Throat: No epistaxis, No recent hearing loss Respiratory: As described under HPI Cardiovascular: As described under HPI Gastrointestinal: No constipation, No diarrhea; nausea; No vomiting Genitourinary: No dysuria, No hematuria Skin: No rash, No ulcerations Psychiatric/Neurological: headache; No seizure, No focal weakness, No syncope Hematologic: No bleeding abnormalities VLS-Bbmgfi-Skodhh Hx Patient Social History Alcohol Use: Denies Use Recreational Drug Use: No Smoking Status: Never a Smoker 2nd Hand Smoke Exposure: No Recent Foreign Travel: No Recent Infectious Disease Expo: No Hospitalization with Isolation: Denies Physical Abuse Screen: No Sexual Abuse: No Past Medical History PMH As described under Assessment. Family Medical History Family Medical History: Mother had CAD and hypertension. Father had CAD and CVA. Allergies and Home Medications Allergies Coded Allergies: No Known Drug Allergies (Unverified , 08/02/15) Home Medications Ascorbic Acid 1,000 Mg Tablet.er, 1,000 MG PO DAILY, (Reported) Atenolol 100 Mg Tablet, 100 MG PO DAILY, (Reported) Cholecalciferol (Vitamin D3) 2,000 Unit Capsule, 2,000 UNIT PO DAILY, (Reported) Clonidine HCl 0.2 Mg Tablet, 0.2 MG PO TID PRN for BLOOD PRESSURE, (Reported) Cyanocobalamin (Vitamin B-12) 5,000 Mcg Tab.rapdis, 5,000 MCG PO DAILY, ( Reported) Estradiol 1 Each Patch.td, 1 EACH TD WEDNESDAYS, (Reported) Fluticasone Propionate 15.8 Ml [place].susp, 2 SPRAY NS DAILY, (Reported) Hydrochlorothiazide 25 Mg Tablet, 25 MG PO EVERY OTHER DAY, (Reported) L. Acidophilus/Bifid. Animalis 1 Each Cap.sprink, 1 EACH PO HS, (Reported) Levomefolate/Algal Oil 1 Each Capsule, 1 EACH PO DAILY, (Reported) Lisinopril 40 Mg Tablet, 40 MG PO DAILY, (Reported) Multivitamin/Iron/Folic Acid 1 Each Tablet, 1 EACH PO DAILY, (Reported) [place] 3 Polyunsat Fatty Acids 1,000 Mg Cap, 1,000 MG PO DAILY, (Reported) Paroxetine Mesylate 7.5 Mg Capsule, 7.5 MG PO HS, (Reported) Potassium Chloride 10 Meq Tablet.er, 10 MEQ PO DAILY, (Reported) S-Adenosylmethionine Sul Tosyl 400 Mg Tablet, 800 MG PO DAILY, (Reported) take 2 (400mg) tab Thyroid,Pork 60 Mg Tablet, 60 MG PO DAILY, (Reported) [5 Mthf] , 1 TAB PO BID, (Reported) [Gsh Glutathione] , 250 MG PO AC&PC, (Reported) [Serenity] , 100 MG PO HS, (Reported) [glutithione] , 500 MG SQ /, (Reported) [gut cleanse] , 1 TAB PO BID, (Reported) Patient Home Medication List Home Medication List Reviewed: Yes Physical Exam-Cardiology Physical Exam Vital Signs/I&O 09/17/17 09/17/17 09/17/17 09/17/17 07:00 07:30 07:40 11:55 Temp 98.4 98.2 Pulse 61 58 61 Resp 18 18 B/P (MAP) 173/78 (109) 184/84 (117) Pulse Ox 97 97 96 O2 Delivery Room Air Room Air Room Air 09/17/17 13:00 Pulse 62 7/3/18 00:00 Intake Total 50 ml Balance 50 ml Capillary Refill : Less Than 3 Seconds Constitutional: AAO x 3, well-developed, well-nourished HEENT: PERRL, hearing is well preserved, oral hygience is good Neck: No carotid bruit; carotid pulses are 2 + bilaterally Respiratory: No accessory muscle use, No respiratory distress; chest expansion is symmetric, chest is bilaterally symmetric, lungs clear to percussion, lungs clear to auscultation Cardiovascular: regular rate-rhythm; No JVD; S1 and S2 Gastrointestinal: No tender; soft, audible bowel sounds Rectal: deferred Extremities: no lower extremity edema bilateral Neurologic/Psychiatric: grossly intact, power is 5/5 both on sides Skin: No rash, No ulcerations Data Review Labs Laboratory Tests 09/16/17 18:20: White Blood Count 8.2, Red Blood Count 4.74, Hemoglobin 13.8, Hematocrit 39, Mean Corpuscular Volume 82, Mean Corpuscular Hemoglobin 29, Mean Corpuscular Hemoglobin Concent 36, Red Cell Distribution Width 12.7, Platelet Count 263, Mean Platelet Volume 9.3, Neutrophils (%) (Auto) 67, Lymphocytes (%) (Auto) 24, Monocytes (%) (Auto) 8, Eosinophils (%) (Auto) 2, Basophils (%) (Auto) 0, Neutrophils # (Auto) 5.5, Lymphocytes # (Auto) 2.0, Monocytes # (Auto) 0.6, Eosinophils # (Auto) 0.2, Basophils # (Auto) 0.0, Sodium Level 129L, Potassium Level 3.2L, Chloride Level 93L, Carbon Dioxide Level 23, Anion Gap 13, Blood Urea Nitrogen 12, Creatinine 0.71, Estimat Glomerular Filtration Rate > 60, BUN/ Creatinine Ratio 17, Glucose Level 127H, Calcium Level 9.4, Total Bilirubin 0.6 , Aspartate Amino Transf (AST/SGOT) 20, Alanine Aminotransferase (ALT/SGPT) 15, Alkaline Phosphatase 79, Troponin I < 0.30, B-Type Natriuretic Peptide 156.0H, Total Protein 7.0, Albumin 4.7H 09/16/17 19:23: Urine Color YELLOW, Urine Clarity CLEAR, Urine pH 8, Urine Specific [place] 1.010L, Urine Protein NEGATIVE, Urine Glucose (UA) NEGATIVE, Urine Ketones NEGATIVE, Urine Nitrite NEGATIVE, Urine Bilirubin NEGATIVE, Urine Urobilinogen NORMAL, Urine Leukocyte Esterase NEGATIVE, Urine RBC (Auto) NEGATIVE, Urine RBC RARE, Urine WBC RARE, Urine Crystals NONE, Urine Bacteria NEGATIVE, Urine Casts NONE, Urine Mucus NEGATIVE, Urine Culture Indicated NO 09/17/17 05:20: White Blood Count 7.4, Red Blood Count 4.84, Hemoglobin 13.8, Hematocrit 39, Mean Corpuscular Volume 81, Mean Corpuscular Hemoglobin 29, Mean Corpuscular Hemoglobin Concent 35, Red Cell Distribution Width 12.9, Platelet Count 235, Mean Platelet Volume 10.0, Neutrophils (%) (Auto) 83H, Lymphocytes (%) (Auto) 10L, Monocytes (%) (Auto) 6, Eosinophils (%) (Auto) 0, Basophils (%) (Auto) 0, Neutrophils # (Auto) 6.1, Lymphocytes # (Auto) 0.8L, Monocytes # (Auto) 0.5, Eosinophils # (Auto) 0.0, Basophils # (Auto) 0.0, Sodium Level 128L, Potassium Level 3.7, Chloride Level 90L, Carbon Dioxide Level 23, Anion Gap 15H, Blood Urea Nitrogen 14, Creatinine 0.90, Estimat Glomerular Filtration Rate > 60, BUN/ Creatinine Ratio 16, Glucose Level 138H, Calcium Level 9.2, Total Bilirubin 1.0 , Aspartate Amino Transf (AST/SGOT) 23, Alanine Aminotransferase (ALT/SGPT) 15, Alkaline Phosphatase 77, Total Protein 7.1, Albumin 4.7H Radiology NAME: SARMAD SERRANO [facility] REC#: [id number] PT STATUS: REG ER : 1955 PHYSICIAN: VAHE BOWDEN PRESS OFFBEARER ADMIT DATE: 09/16/17/ER Signed Date of Exam: 09/16/17 CHEST 1 VIEW, AP/PA ONLY INDICATION: Chest pain with elevated blood pressure. COMPARISON: 09/03/2017. FINDINGS: Central vascular indistinctness with interstitial opacities are present. Heart is borderline enlarged. No pneumothorax. No pleural effusion. IMPRESSION: Central vascular congestion and heterogeneous opacities are likely due to interstitial edema. However, an atypical pneumonia or viral bronchitis could have this appearance in appropriate setting. Dictated by: Dictated on workstation # [id number] Dict: 09/16/171918 Trans: 09/16/171928 Interpreted by: ANIL BRICEÑO MD Electronically signed by: ANIL BRICEÑO MD 09/16/171928 ECG Impression ECG Initial ECG Rhythm: Normal Sinus A/P-Cardiology Assessment/Admission Diagnosis Uncontrolled hypertension Electrolyte abnormalities likely d/t chronic diuretic use Acute diastolic CHF Headache - medical services managing Poss pneumonia - medical services managing Hypertension with hypertensive CVD Mod pulm htn, etiology unclear - following with Dr. Ennis Echo of 08/16/17: LVEF 60-65%, mild conc LVH, mild to mod enlargement of LA, mild to mod TR, PASP 45-50 mmHg MPI of 07/23/17: no ischemia or infarction, LVEF 77% Glucose metabolism abnormalities, treated by her pcp H/o Lyme disease ([facility] in [place] managing this) H/o hypothyroidism and multinodular thyroid goiter, being followed by Dr Davalos. Current numbers indicative of mild iatrogenic hyperthyroidism Questionable TIA's for which she is following with Dr. Davalos. She has had a neurologic w/u with Dr Jacobson and has not been found to have any neuro deficits on MRI or physical exam Minimal carotid plaque without evidence of hemodynamic significance on carotid u /s of 09/06/15 Sleep apnea - CPAP tx managed by Ramses Rojas APRN Clinical Quality Measures AMI/AHF: ASA po Prior to arrival: No DVT/VTE Risk/Contraindication: Risk Factor Score Per Nursin RFS Level Per Nursing on Admit: 3=High SELMA BATRES Sep 17, 2017 08:04
[2017-09-17] MEDS ORDERED: HYDR25TA4 PO (08:29)
[2017-09-17] MEDS ORDERED: FLUT15.88 NS (08:31)
[2017-09-17] MEDS ORDERED: ESTR1PAT75 TD (08:35)
[2017-09-17] MEDS: NS IV 1000 ML 1,000 ML IV SCH ×2 (08:43→10:22)
[2017-09-17] MEDS: doxAzosin 2 MG (CARDURA) TAB PO PRN (09:13)
[2017-09-17] MEDS ORDERED: doxAzosin 2 MG (CARDURA) TAB PO ONE (09:15)
[2017-09-17] MEDS ORDERED: ATENOLOL 50 MG (TENORMIN) TAB PO SCH (09:32)
[2017-09-17] MEDS ORDERED: lisINopril 20 MG (PRINIVIL) TABLET PO NR ×2 (09:45→13:10)
--- NOTE | 2017-09-17 11:45 | History & Physical-Hospitalist ---
History of Present Illness HPI/Chief Complaint The patient is a 61-year-old white female known to me for a goodly number of years. She was admitted after she presented to the emergency room yesterday with complaint of headache and extremely high blood pressure. She states that she has had hypertension which seems to be a family trait for 20 years or more. Recently it has been much more difficult to control and the degree of hypertension has increased. She said this began about the same time that she was found to have Lyme disease. Blood pressure in the emergency room was initially as high as 245/141. She reports that the headache is better but still present today. The blood pressure is listed are greatly improved as compared to that. It is noted historically that relatively speaking she has a greater degree of elevation of her systolic blood pressure and a wide pulse pressure Source: family Exam Limitations: no limitations Date Seen 09/17/17 Time Seen by Provider: 11:40 Attending Physician Marlin Johns MD Facp Facc Ccds PCP Carlos Davalos DO Referring Physician Date of Admission Sep 16, 2017 at 21:43 Home Medications & Allergies Home Medications Reviewed patient Home Medication Reconciliation performed by pharmacy medication reconciliations customer data technician and/or nursing. Patients Allergies have been reviewed. Allergies Allergies Coded Allergies No Known Drug Allergies (Unverified08/02/15) Past Onacvhe-Fscadp-Ayaowm Hx Past Med/Social Hx: Reviewed Nursing Past Med/Soc Hx Patient Social History Alcohol Use: Denies Use Recreational Drug Use: No Smoking Status: Never a Smoker 2nd Hand Smoke Exposure: No Physical Abuse Screen: No Sexual Abuse: No Recent Foreign Travel: No Contact w/other who traveled: No Recent Hopitalizations: No Recent Infectious Disease Expo: No Seasonal Allergies Seasonal Allergies: Yes Past Medical History Surgeries: Tubal Ligation Currently Using CPAP: Yes Cardiac: Hypertension Reproductive: No Sexually Transmitted Disease: No HIV/AIDS: No Female Reproductive Disorders: Menstrual Problems Musculoskeletal: Arthritis Psychosocial: Anxiety History of Blood Disorders: No Review of Systems Constitutional: see HPI EENTM: other (headache) Respiratory: no symptoms reported Cardiovascular: no symptoms reported, other (recent echocardiogram was apparently positive for left ventricular hypertrophy) Gastrointestinal: no symptoms reported Genitourinary: no symptoms reported Musculoskeletal: no symptoms reported Skin: no symptoms reported Psychiatric/Neurological: No Symptoms Reported Physical Exam Physical Exam Vital Signs Vital Signs - First Documented 09/16/17 18:20 Temp 98.4 Pulse 60 Resp 18 B/P (MAP) 245/141 (175) Pulse Ox 100 O2 Delivery Room Air Capillary Refill : Less Than 3 Seconds General Appearance: No Apparent Distress, WD/WN Eyes: Bilateral Eye Normal Inspection HEENT: Normal ENT Inspection Neck: Full Range of Motion, Normal Inspection, Non Tender, Supple, Carotid Bruit Respiratory: Chest Non Tender, Lungs Clear, Normal Breath Sounds, No Accessory Muscle Use, No Respiratory Distress Cardiovascular: Regular Rate, Rhythm, No Edema, No Gallop, No JVD, No Murmur, Normal Peripheral Pulses Back: Normal Inspection Extremity: Normal Capillary Refill, Normal Inspection, Normal Range of Motion, Non Tender, No Calf Tenderness, No Pedal Edema Neurologic/Psychiatric: Alert, Oriented x3, No Motor/Sensory Deficits, Normal Mood/Affect Skin: Normal Color, Warm/Dry Lymphatic: No Adenopathy Results Results/Procedures Labs Laboratory Tests 09/16/17 18:20 09/17/17 05:20 Patient resulted labs reviewed. Assessment/Plan Admission Diagnosis Accelerated hypertension. 2.history of Lyme disease Admission Status: Observation Assessment and Plan Cardiology consultation. Adjustment of medications as necessary. Clinical Quality Measures AMI/AHF: ASA po Prior to arrival: No DVT/VTE Risk/Contraindication: Risk Factor Score Per Nursin RFS Level Per Nursing on Admit: 3=High MICHELLE DE LA CRUZ MD Sep 17, 2017 11:45
[2017-09-17 11:55] VITALS: BP 184/84
[2017-09-17] MEDS ORDERED: amLODIPine 10 MG (NORVASC) TAB PO ONE (13:15)
[2017-09-17] MEDS ORDERED: amLODIPine 10 MG (NORVASC) TAB ONE (13:16)
[2017-09-17] MEDS ORDERED: ACETAMINOPHEN 500 MG TAB (TYLENOL) ONE (13:21)
[2017-09-17] MEDS ORDERED: ACETAMINOPHEN 500 MG TAB (TYLENOL) PO PRN ×2 (13:30→14:00)
--- NOTE | 2017-09-17 14:25 | Consultation-Cardiology ---
HPI-Cardiology Cardiology Consultation: Date of Consultation 09/17/17 Time Seen by Provider: 09:10 Date of Admission Attending Physician Dr Du Admitting Physician Carlos Davalos DO Consulting Physician LEANNE MCCRARY MD, MA, FACP, FACC, FSCAI, CCDS HPI: Chief Complaint: CC: Headache, malaise, nausea HPI. Ms. Serrano is a 61 year old female admitted to [facility] from the ED with uncontrolled hypertension and headache. She denies any c/o CP, palpitations, syncope or near syncope. No c/o LE edema. She reports over the course of the last few days she has felt increasingly unwell. She reports headache which has been constant and progressive. She states she has been taking her BP at home and noted it to be elevated. She reports she has been taking all her medication as Rx. She states she has been taking Clonidine several times a day to "try and get ahead" of her blood pressure, but it remained high. She states she noticed her HR to be getting low into the upper 40's to mid-50's. She states since she could not get her BP down she came to the ED. She reports she did have some nausea earlier this morning and a continued headache. She reports the headache is better, but not completely resolved. Review of Systems-Cardiology Review of Systems Constitutional: No chills, No fever; malaise, tiredness Eyes: No vision change Ears/Nose/Throat: No epistaxis, No recent hearing loss Respiratory: As described under HPI Cardiovascular: As described under HPI Gastrointestinal: No constipation, No diarrhea; nausea; No vomiting Genitourinary: No dysuria, No hematuria Skin: No rash, No ulcerations Psychiatric/Neurological: headache; No seizure, No focal weakness, No syncope Hematologic: No bleeding abnormalities MVK-Whuneu-Tmispc Hx Patient Social History Alcohol Use: Denies Use Recreational Drug Use: No Smoking Status: Never a Smoker 2nd Hand Smoke Exposure: No Recent Foreign Travel: No Recent Infectious Disease Expo: No Hospitalization with Isolation: Denies Physical Abuse Screen: No Sexual Abuse: No Past Medical History PMH As described under Assessment. Family Medical History Family Medical History: Mother had CAD and hypertension. Father had CAD and CVA. Allergies and Home Medications Allergies Coded Allergies: No Known Drug Allergies (Unverified , 08/02/15) Home Medications Ascorbic Acid 1,000 Mg Tablet.er, 1,000 MG PO DAILY, (Reported) Atenolol 100 Mg Tablet, 100 MG PO DAILY, (Reported) Cholecalciferol (Vitamin D3) 2,000 Unit Capsule, 2,000 UNIT PO DAILY, (Reported) Clonidine HCl 0.2 Mg Tablet, 0.2 MG PO TID PRN for BLOOD PRESSURE, (Reported) Cyanocobalamin (Vitamin B-12) 5,000 Mcg Tab.rapdis, 5,000 MCG PO DAILY, ( Reported) Estradiol 1 Each Patch.tdk, 1 EACH TD WEDNESDAYS, (Reported) Fluticasone Propionate 15.8 Ml [place].susp, 2 SPRAY NS DAILY, (Reported) Hydrochlorothiazide 25 Mg Tablet, 25 MG PO EVERY OTHER DAY, (Reported) L. Acidophilus/Bifid. Animalis 1 Each Cap.sprink, 1 EACH PO HS, (Reported) Levomefolate/Algal Oil 1 Each Capsule, 1 EACH PO DAILY, (Reported) Lisinopril 40 Mg Tablet, 40 MG PO DAILY, (Reported) Multivitamin/Iron/Folic Acid 1 Each Tablet, 1 EACH PO DAILY, (Reported) [place] 3 Polyunsat Fatty Acids 1,000 Mg Cap, 1,000 MG PO DAILY, (Reported) Paroxetine Mesylate 7.5 Mg Capsule, 7.5 MG PO HS, (Reported) Potassium Chloride 10 Meq Tablet.er, 10 MEQ PO DAILY, (Reported) S-Adenosylmethionine Sul Tosyl 400 Mg Tablet, 800 MG PO DAILY, (Reported) take 2 (400mg) tab Thyroid,Pork 60 Mg Tablet, 60 MG PO DAILY, (Reported) [5 Mthf] , 1 TAB PO BID, (Reported) [Gsh Glutathione] , 250 MG PO AC&PC, (Reported) [Serenity] , 100 MG PO HS, (Reported) [glutithione] , 500 MG SQ M/TH, (Reported) [gut cleanse] , 1 TAB PO BID, (Reported) Patient Home Medication List Home Medication List Reviewed: Yes Physical Exam-Cardiology Physical Exam Vital Signs/I&O 09/17/17 09/17/17 09/17/17 09/17/17 04:06 07:00 07:30 07:40 Temp 97.9 98.4 Pulse 57 61 58 Resp 17 18 B/P (MAP) 148/78 (101) 173/78 (109) Pulse Ox 95 97 97 O2 Delivery Room Air Room Air Room Air 09/17/17 09/17/17 11:55 13:00 Temp 98.2 Pulse 61 62 Resp 18 B/P (MAP) 184/84 (117) Pulse Ox 96 O2 Delivery Room Air 09/17/17 00:00 Intake Total 50 ml Balance 50 ml Capillary Refill : Less Than 3 Seconds Constitutional: AAO x 3, well-developed, well-nourished HEENT: PERRL, hearing is well preserved, oral hygience is good Neck: No carotid bruit; carotid pulses are 2 + bilaterally Respiratory: No accessory muscle use, No respiratory distress; chest expansion is symmetric, chest is bilaterally symmetric, lungs clear to percussion, lungs clear to auscultation Cardiovascular: regular rate-rhythm; No JVD; S1 and S2 Gastrointestinal: No tender; soft, audible bowel sounds Rectal: deferred Extremities: no lower extremity edema bilateral Neurologic/Psychiatric: grossly intact, power is 5/5 both on sides Skin: No rash, No ulcerations Data Review Labs Laboratory Tests 09/16/17 18:20: White Blood Count 8.2, Red Blood Count 4.74, Hemoglobin 13.8, Hematocrit 39, Mean Corpuscular Volume 82, Mean Corpuscular Hemoglobin 29, Mean Corpuscular Hemoglobin Concent 36, Red Cell Distribution Width 12.7, Platelet Count 263, Mean Platelet Volume 9.3, Neutrophils (%) (Auto) 67, Lymphocytes (%) (Auto) 24, Monocytes (%) (Auto) 8, Eosinophils (%) (Auto) 2, Basophils (%) (Auto) 0, Neutrophils # (Auto) 5.5, Lymphocytes # (Auto) 2.0, Monocytes # (Auto) 0.6, Eosinophils # (Auto) 0.2, Basophils # (Auto) 0.0, Sodium Level 129L, Potassium Level 3.2L, Chloride Level 93L, Carbon Dioxide Level 23, Anion Gap 13, Blood Urea Nitrogen 12, Creatinine 0.71, Estimat Glomerular Filtration Rate > 60, BUN/ Creatinine Ratio 17, Glucose Level 127H, Calcium Level 9.4, Total Bilirubin 0.6 , Aspartate Amino Transf (AST/SGOT) 20, Alanine Aminotransferase (ALT/SGPT) 15, Alkaline Phosphatase 79, Troponin I < 0.30, B-Type Natriuretic Peptide 156.0H, Total Protein 7.0, Albumin 4.7H 09/16/17 19:23: Urine Color YELLOW, Urine Clarity CLEAR, Urine pH 8, Urine Specific [place] 1.010L, Urine Protein NEGATIVE, Urine Glucose (UA) NEGATIVE, Urine Ketones NEGATIVE, Urine Nitrite NEGATIVE, Urine Bilirubin NEGATIVE, Urine Urobilinogen NORMAL, Urine Leukocyte Esterase NEGATIVE, Urine RBC (Auto) NEGATIVE, Urine RBC RARE, Urine WBC RARE, Urine Crystals NONE, Urine Bacteria NEGATIVE, Urine Casts NONE, Urine Mucus NEGATIVE, Urine Culture Indicated NO 09/17/17 05:20: White Blood Count 7.4, Red Blood Count 4.84, Hemoglobin 13.8, Hematocrit 39, Mean Corpuscular Volume 81, Mean Corpuscular Hemoglobin 29, Mean Corpuscular Hemoglobin Concent 35, Red Cell Distribution Width 12.9, Platelet Count 235, Mean Platelet Volume 10.0, Neutrophils (%) (Auto) 83H, Lymphocytes (%) (Auto) 10L, Monocytes (%) (Auto) 6, Eosinophils (%) (Auto) 0, Basophils (%) (Auto) 0, Neutrophils # (Auto) 6.1, Lymphocytes # (Auto) 0.8L, Monocytes # (Auto) 0.5, Eosinophils # (Auto) 0.0, Basophils # (Auto) 0.0, Sodium Level 128L, Potassium Level 3.7, Chloride Level 90L, Carbon Dioxide Level 23, Anion Gap 15H, Blood Urea Nitrogen 14, Creatinine 0.90, Estimat Glomerular Filtration Rate > 60, BUN/ Creatinine Ratio 16, Glucose Level 138H, Calcium Level 9.2, Total Bilirubin 1.0 , Aspartate Amino Transf (AST/SGOT) 23, Alanine Aminotransferase (ALT/SGPT) 15, Alkaline Phosphatase 77, Total Protein 7.1, Albumin 4.7H A/P-Cardiology Assessment/Admission Diagnosis Malignant hypertension (severe hypertension with ac john CHF) Electrolyte abnormalities likely d/t chronic diuretic use Acute diastolic CHF Headache - Medical Services managing. No evidence of any acute intracranial abnormality on CT head of 09/16/17 Poss pneumonia - Medical Services managing Hypertension with hypertensive CVD Mod pulm htn, etiology unclear - following with Dr. Ennis Echo of 08/16/17: LVEF 60-65%, mild conc LVH, mild to mod enlargement of LA, mild to mod TR, PASP 45-50 mmHg MPI of 07/23/17: no ischemia or infarction, LVEF 77% Glucose metabolism abnormalities, treated by her pcp H/o Lyme disease ([facility] in [place] managing this) H/o hypothyroidism and multinodular thyroid goiter, being followed by Dr Davalos. Current numbers indicative of mild iatrogenic hyperthyroidism Questionable TIA's for which she is following with Dr. Davalos. She has had a neurologic w/u with Dr Jacobson and has not been found to have any neuro deficits on MRI or physical exam Minimal carotid plaque without evidence of hemodynamic significance on carotid u /s of 09/06/15 Sleep apnea - CPAP tx managed by Ramses Rojas APRN Discussion and Recomendations * Adjust bp meds * Replenish Na * Monitor labs * D/c HCTZ because of elec abn * Add vasodilators: doxazosin and amlodipine * Change beta-boris (from atenolol to metoprolol succinate) * Continue JAMEL-inhibitor * Monitor bp closely Clinical Quality Measures AMI/AHF: ASA po Prior to arrival: No DVT/VTE Risk/Contraindication: Risk Factor Score Per Nursin RFS Level Per Nursing on Admit: 3=High LEANNE MCCRARY MD FACP FACC CCDS Sep 17, 2017 14:25
[2017-09-17] MEDS ORDERED: doxAzosin 2 MG (CARDURA) TAB PO NR (15:00)
[2017-09-17 16:00] VITALS: BP 148/88
[2017-09-17 20:05] VITALS: BP 146/86
[2017-09-17] MEDS: doxAzosin 2 MG (CARDURA) TAB PO SCH (20:21)
[2017-09-17] MEDS ORDERED: doxAzosin 2 MG (CARDURA) TAB PO SCH (21:00)
[2017-09-18] VITALS (7 sets, daily range): BP systolic 137–187; BP diastolic 80–88
[2017-09-18 05:46] LABS: BASOPHILS % (AUTO) 0 % (0-10); EOSINOPHILS # (AUTO) 0.1 10^3/uL (0.0-0.3); EOSINOPHILS % (AUTO) 1 % (0-10); HEMATOCRIT 39 % (35-52); HEMOGLOBIN 13.9 G/DL (11.5-16.0); LYMPHOCYTES # (AUTO) 1.3 X 10^3 (1.0-4.0); LYMPHOCYTES % (AUTO) 27 % (12-44); MEAN CORPUSCULAR HEMOGLOBIN 29 PG (25-34); MEAN CORPUSCULAR HGB CONC 35 G/DL (32-36); MEAN CORPUSCULAR VOLUME 83 FL (80-99); MEAN PLATELET VOLUME 9.7 FL (7.4-10.4); MONOCYTES # (AUTO) 0.5 X 10^3 (0.0-1.0); MONOCYTES % (AUTO) 10 % (0-12); NEUTROPHILS # (AUTO) 2.8 X 10^3 (1.8-7.8); NEUTROPHILS % (AUTO) 62 % (42-75); PLATELET COUNT 198 10^3/uL (130-400); RED BLOOD COUNT 4.77 10^6/uL (4.35-5.85); WHITE BLOOD COUNT 4.6 10^3/uL (4.3-11.0)
[2017-09-18 06:47] LABS: BUN/CREATININE RATIO 20; CALCIUM 9.5 MG/DL (8.5-10.1); CARBON DIOXIDE 23 MMOL/L (21-32); CHLORIDE 102 MMOL/L (98-107); CREATININE SERUM 0.74 MG/DL (0.60-1.30); GFR ESTIMATED > 60; GLUCOSE 119 MG/DL (70-105); MAGNESIUM 2.5 MG/DL (1.8-2.4); POTASSIUM 3.8 MMOL/L (3.6-5.0); SODIUM 137 MMOL/L (135-145)
[2017-09-18] MEDS: NS IV 1000 ML 1,000 ML IV SCH (08:09)
[2017-09-18] MEDS: FLUTICASONE NASAL SPRAY (FLONASE) 16 GM BTL NS SCH (08:13)
[2017-09-18] MEDS: doxAzosin 2 MG (CARDURA) TAB PO SCH ×2 (08:13→20:51)
[2017-09-18] MEDS: KCL 10 MEQ TAB (MICRO K) PO SCH (08:14)
[2017-09-18] MEDS: THYROID 1 GRAIN (60 - 65 MG) TABLET PO SCH (08:14)
[2017-09-18] MEDS: HYDROCHLOROTHIAZIDE 25 MG (HCTZ) TAB PO SCH ×2 (08:14→19:07)
[2017-09-18] MEDS: OMEGA 3 (FISH OIL) 1000 MG CAP PO SCH (08:14)
[2017-09-18] MEDS: lisINopril 40 MG (PRINIVIL) TABLET PO SCH (08:14)
[2017-09-18] MEDS: amLODIPine 10 MG (NORVASC) TAB PO SCH (08:15)
[2017-09-18] MEDS ORDERED: meTOprolol SUCCINATE 100 MG (TOPROL XL) TAB PO SCH (09:00)
[2017-09-18] MEDS ORDERED: THYROID PORK 60 MG PO SCH (09:00)
--- NOTE | 2017-09-18 12:44 | Cardiology Progress Note ---
Cardiology SOAP Progress Note Subjective: No cardiac complaints Objective: I&O/Vital Signs 09/18/17 09/18/17 09/18/17 09/18/17 01:00 03:46 07:00 08:00 Temp 98.1 98.7 Pulse 64 66 70 62 Resp 18 18 B/P (MAP) 137/85 (102) 178/86 (116) Pulse Ox 93 93 O2 Delivery NIV Bilevel Room Air 09/18/17 10:53 O2 Delivery Room Air 09/18/17 00:00 Intake Total 2110 ml Output Total 2900 ml Balance -790 ml Weight (Pounds): 145 Weight (Ounces): 0.0 Weight (Calculated Kilograms): 65.427709 Constitutional: AAO x 3, well-developed, well-nourished Respiratory: No accessory muscle use, No respiratory distress; chest expansion is symmetric, chest is bilaterally symmetric, lungs clear to percussion, lungs clear to auscultation Cardiovascular: regular rate-rhythm; No JVD; S1 and S2 Gastrointestional: No tender; soft, audible bowel sounds Extremities: no lower extremity edema bilateral Neurologic/Psychiatric: grossly intact, power is 5/5 both on sides Skin: No rash, No ulcerations Results/Procedures: Labs Laboratory Tests 09/18/17 05:20: White Blood Count 4.6, Red Blood Count 4.77, Hemoglobin 13.9, Hematocrit 39, Mean Corpuscular Volume 83, Mean Corpuscular Hemoglobin 29, Mean Corpuscular Hemoglobin Concent 35, Red Cell Distribution Width 13.0, Platelet Count 198, Mean Platelet Volume 9.7, Neutrophils (%) (Auto) 62, Lymphocytes (%) (Auto) 27, Monocytes (%) (Auto) 10, Eosinophils (%) (Auto) 1, Basophils (%) (Auto) 0, Neutrophils # (Auto) 2.8, Lymphocytes # (Auto) 1.3, Monocytes # (Auto) 0.5, Eosinophils # (Auto) 0.1, Basophils # (Auto) 0.0, Sodium Level 137, Potassium Level 3.8, Chloride Level 102, Carbon Dioxide Level 23, Anion Gap 12, Blood Urea Nitrogen 15, Creatinine 0.74, Estimat Glomerular Filtration Rate > 60, BUN/ Creatinine Ratio 20, Glucose Level 119H, Calcium Level 9.5, Magnesium Level 2.5H A/P: Assessment/Dx: Severe hypertension, Electrolyte abnormalities, Acute diastolic congestive heart failure, Headache, Possible pneumonia, Moderate pulmonary hypertension, Plan: Malignant hypertension (severe hypertension with ac john CHF): Much improved. Shortness of breath and headache resolved. Blood pressure still elevated. Already on maximum dose of lisinopril, amlodipine. Also on Cardura. On metoprolol 100 mg daily. We will discontinue metoprolol and start carvedilol 25 mg twice a day. Electrolyte abnormalities likely d/t chronic diuretic use Acute diastolic CHF: Resolved. Headache - Medical Services managing. No evidence of any acute intracranial abnormality on CT head of 09/16/17 Poss pneumonia - Medical Services managing Hypertension with hypertensive CVD Mod pulm htn, etiology unclear - following with Dr. Ennis Echo of 08/16/17: LVEF 60-65%, mild conc LVH, mild to mod enlargement of LA, mild to mod TR, PASP 45-50 mmHg MPI of 07/23/17: no ischemia or infarction, LVEF 77% Glucose metabolism abnormalities, treated by her pcp H/o Lyme disease ([facility] in [place] managing this) H/o hypothyroidism and multinodular thyroid goiter, being followed by Dr Davalos. Current numbers indicative of mild iatrogenic hyperthyroidism Questionable TIA's for which she is following with Dr. Davalos. She has had a neurologic w/u with Dr Jacobson and has not been found to have any neuro deficits on MRI or physical exam Minimal carotid plaque without evidence of hemodynamic significance on carotid u /s of 09/06/15 Sleep apnea - CPAP tx managed by Ramses Rojas APRN If patient responds well to carvedilol and blood pressure systolic is below 150 she can be discharged later this evening. And can follow-up with Dr. Johns as an outpatient. Discussed with the patient. Thank you for your consultation. Please call me if you have any questions. Ezra Martin MD, FACP, FACC, FSCAI, FHRS, CCDS Interventional Cardiology Cardiac Electrophysiology Vascular Medicine and Endovascular Interventions Clinical Quality Measures AMI/AHF: ASA po Prior to arrival: Constantine Curiel MD Sep 18, 2017 12:44
[2017-09-18] MEDS: CARVEDILOL 12.5 MG (COREG) TABLET PO SCH ×2 (13:33→20:51)
--- NOTE | 2017-09-18 14:00 | Progress Note-Hospitalist ---
Progress Note Progress Notes/Assess & Plan Date Seen 09/18/17 Time Seen by Provider: 13:57 Assessment & Plan The patient had hoped to be discharged today. She reports that she was seen by Dr. Martin of the cardiology service and he was unhappy with her systolic blood pressure which was right at 180. Her diastolics have been satisfactory. This in fact reflects what she reported as her outpatient TREND Her headache is gone. Dr. Martin changed at her medications and added carvedilol. Physical exam: She is alert and bright. Lungs are clear to auscultation. CV is regular without murmur. Extremities show no pedal edema. Impression: Hypertension Await the effect of new medication MICHELLE DE LA CRUZ MD Sep 18, 2017 14:00
[2017-09-19] VITALS: BP 175/82
[2017-09-19 04:00] VITALS: BP 132/71
[2017-09-19] MEDS: THYROID 1 GRAIN (60 - 65 MG) TABLET PO SCH (06:16)
[2017-09-19 08:00] VITALS: BP 161/83
[2017-09-19] MEDS: CARVEDILOL 12.5 MG (COREG) TABLET PO SCH (08:36)
[2017-09-19] MEDS: lisINopril 40 MG (PRINIVIL) TABLET PO SCH (08:36)
[2017-09-19] MEDS: FLUTICASONE NASAL SPRAY (FLONASE) 16 GM BTL NS SCH (08:36)
[2017-09-19] MEDS: OMEGA 3 (FISH OIL) 1000 MG CAP PO SCH (08:36)
[2017-09-19] MEDS: doxAzosin 2 MG (CARDURA) TAB PO SCH (08:36)
[2017-09-19] MEDS: KCL 10 MEQ TAB (MICRO K) PO SCH (08:36)
[2017-09-19] MEDS: amLODIPine 10 MG (NORVASC) TAB PO SCH (08:36)
--- NOTE | 2017-09-19 09:26 | Progress Note-Cardiology ---
Cardiology SOAP Progress Note Subjective: No cp or palp or syncope or shortness of breath. Feels better today and wishes to go home Objective: I&O/Vital Signs 09/19/17 09/19/17 09/19/17 09/19/17 00:00 01:00 04:00 06:21 Temp 98.2 98.4 Pulse 62 60 72 Resp 16 16 B/P (MAP) 175/82 (113) 132/71 (91) Pulse Ox 98 96 96 O2 Delivery NIV CPAP NIV CPAP Room Air 09/19/17 09/19/17 06:59 08:27 Pulse 93 O2 Delivery Room Air 09/19/17 00:00 Intake Total 1490 ml Output Total 1700 ml Balance -210 ml Weight (Pounds): 145 Weight (Ounces): 0.0 Weight (Calculated Kilograms): 65.501857 Constitutional: AAO x 3, well-developed, well-nourished Respiratory: No accessory muscle use, No respiratory distress; chest expansion is symmetric, chest is bilaterally symmetric, lungs clear to percussion, lungs clear to auscultation Cardiovascular: regular rate-rhythm; No JVD; S1 and S2 Gastrointestional: No tender; soft, audible bowel sounds Extremities: no lower extremity edema bilateral Neurologic/Psychiatric: grossly intact, power is 5/5 both on sides Skin: No rash, No ulcerations Results/Procedures: Labs Laboratory Tests 09/18/17 05:20 A/P: Assessment: Malignant hypertension (severe hypertension with ac john CHF) Electrolyte abnormalities likely d/t chronic diuretic use, resolved Acute diastolic CHF, resolved Headache - Medical Services managing. No evidence of any acute intracranial abnormality on CT head of 09/16/17 Poss pneumonia - Medical Services managing Hypertension with hypertensive CVD Mod pulm htn, etiology unclear - following with Dr. Ennis Echo of 08/16/17: LVEF 60-65%, mild conc LVH, mild to mod enlargement of LA, mild to mod TR, PASP 45-50 mmHg MPI of 07/23/17: no ischemia or infarction, LVEF 77% Glucose metabolism abnormalities, treated by her pcp H/o Lyme disease ([facility] in [place] managing this) H/o hypothyroidism and multinodular thyroid goiter, being followed by Dr Davalos. Current numbers indicative of mild iatrogenic hyperthyroidism Questionable TIA's for which she is following with Dr. Davalos. She has had a neurologic w/u with Dr Jacobson and has not been found to have any neuro deficits on MRI or physical exam Minimal carotid plaque without evidence of hemodynamic significance on carotid u /s of 09/06/15 Sleep apnea - CPAP tx managed by Ramses Rojas APRN Plan: * Continue current meds * D/c if bp acceptable * Close outpat f/u * I discussed with her her current regimen and the pros and cons Clinical Quality Measures AMI/AHF: ASA po Prior to arrival: LEANNE Byrd MD FACP FAC CCDS Sep 19, 2017 09:26
[2017-09-19] MEDS ORDERED: DOXA2TAB2 PO (09:30)
[2017-09-19] MEDS ORDERED: CARV25TA PO (09:30)
[2017-09-19 10:32] VITALS: BP 161/83
[2017-09-19 11:15] VITALS: BP 138/68
--- NOTE | 2017-09-19 11:22 | Discharge Summary-Hospitalist ---
Diagnosis/Chief Complaint Date of Admission Sep 16, 2017 at 21:43 Date of Discharge Discharge Date: Sep 19, 2017 Admission Diagnosis Accelerated hypertension. 2.history of Lyme disease Discharge Diagnosis (1) Hypertensive crisis Status: Resolved (2) Pulmonary edema Status: Resolved (3) Hypothyroidism Status: Chronic (4) Post-Lyme disease syndrome Status: Chronic Discharge Summary Discharge Physical Exam Allergies: Coded Allergies: No Known Drug Allergies (Unverified , 08/02/15) Vitals & I&Os Vital Signs Date Time Temp Pulse Resp B/P (MAP) Pulse Ox O2 Delivery O2 Flow Rate FiO2 09/19/17 10:32 80 97 09/19/17 08:27 Room Air 09/19/17 08:00 99.0 22 161/83 (109) General Appearance: Alert, Oriented X3, Cooperative HEENT: Atraumatic, PERRLA Respiratory: Clear to Auscultation, Normal Air Movement Cardiovascular: Regular Rate Neuro: Normal Gait, Normal Speech, Strength at 5/5 X4 Ext Psych/Mental Status: Mental Status NL Hospital Course Hospital course: Patient had an uneventful hospital course she was admitted for malignant hypertension with hypertensive urgency and pulmonary edema. Patient has permissive elevated systolic blood pressure due to recommendations from Dr. Davalos since she had Lyme disease in the past. Patient responded to additional blood pressure medications and cardiology was kind enough to give us some formal recommendations and after core rate was initiated her blood pressure remained in good control and patient was discharged home in an uneventful manner. Labs (last 24 hrs) Patient resulted labs reviewed. Discussion & Recommendations Discharge Planning: <30 minutes discharge planning Discharge Home Medications: Active Scripts Active Carvedilol 25 Mg Tablet 25 Mg PO BID Doxazosin Mesylate 2 Mg Tablet 4 Mg PO BID Reported Estradiol Patch Weekly 0.025mg/hr (Estradiol) 1 Each Patch.tdwk 1 Each TD WEDNESDAYS Fluticasone Propionate 15.8 Ml [place].susp 2 [place] NS DAILY Hydrochlorothiazide 25 Mg Tablet 25 Mg PO EVERY OTHER DAY [glutithione] 500 Mg SQ M/TH [place] (Paroxetine Mesylate) 7.5 Mg Capsule 7.5 Mg PO HS [place]-Algal Oil 7.5 mg Cap (Levomefolate/Algal Oil) 1 Each Capsule 1 Each PO DAILY Centrum Adults Tablet (Multivitamin/Iron/Folic Acid) 1 Each Tablet 1 Each PO DAILY [Gsh Glutathione] 250 Mg PO AC&PC Probiotic 5 Billion Cell Cap (L. Acidophilus/Bifid. Animalis) 1 Each Cap.sprink 1 Each PO HS [Serenity] 100 Mg PO HS Potassium Chloride 10 Meq Tablet.er 10 Meq PO DAILY Vitamin D3 (Cholecalciferol (Vitamin D3)) 2,000 Unit Capsule 2,000 Unit PO DAILY Vitamin C (Ascorbic Acid) 1,000 Mg Tablet.er 1,000 Mg PO DAILY Vitamin B12 (Cyanocobalamin (Vitamin B-12)) 5,000 Mcg Tab.rapdis 5,000 Mcg PO DAILY Fish Oil 1,000 mg Capsule ([place] 3 Polyunsat Fatty Acids) 1,000 Mg Cap 1,000 Mg PO DAILY [5 Mthf] 1 Tab PO BID [gut cleanse] 1 Tab PO BID Natalio-E (S-Adenosylmethionine Sul Tosyl) 400 Mg Tablet 800 Mg PO DAILY take 2 (400mg) tab [place] Thyroid (Thyroid,Pork) 60 Mg Tablet 60 Mg PO DAILY Lisinopril 40 Mg Tablet 40 Mg PO DAILY Atenolol 100 Mg Tablet 100 Mg PO DAILY Clonidine HCl 0.2 Mg Tablet 0.2 Mg PO TID PRN Instructions to patient/family Please see electronic discharge instructions given to patient. Clinical Quality Measures AMI/AHF: ASA po Prior to arrival: No DVT/VTE Risk/Contraindication: Risk Factor Score Per Nursin RFS Level Per Nursing on Admit: 3=High Problem Qualifiers (1) Hypothyroidism: Hypothyroidism type: acquired Qualified Codes: E03.9 - Hypothyroidism, unspecified TESSIE IBRAHIM DO Sep 19, 2017 11:22
== END 2017-09-19 11:13 | disposition home or self-care (01) ==
LOC: EDUNIT# 18:16 → ER 18:17 → 4TH 21:43 → UNDOADMOB 21:43 → 4TH 22:05 → UNDODISOB 09-19 12:20
PROVIDERS: ADMIT Internal Medicine; ATTEND Internal Medicine Cardiovascular Disease
DX: I16.9 Hypertensive crisis, unspecified (principal); J81.1 Chronic pulmonary edema; E03.9 Hypothyroidism, unspecified; Z86.19 Personal history of other infectious and parasitic diseases; I11.0 Hypertensive heart disease with heart failure; I50.31 Acute diastolic (congestive) heart failure; I27.20 Pulmonary hypertension, unspecified; E87.8 Other disorders of electrolyte and fluid balance, not elsewhere classified; G47.30 Sleep apnea, unspecified
CPT/HCPCS: 36415; 70450; 71045; 80048; 80053; 81000; 83735; 83880; 84484; 85025; 93005; 94760; 96365; 96366; 96375; 96376; G0378

== ENCOUNTER → 2017-09-16 | Outpatient (CLI) | payer BC ==
[~2017-09-16] MED LIST changes: +CARV25TA PO; +DOXA2TAB2 PO; +ESTR1PAT75 TD; +FLUT15.88 NS; +RT-ALBUTEROL SULF 2.5 MG/3 ML PRE-MIX VIAL INH ONE
== END ==
LOC: RAD 09-03 15:25 → RT 09:36
PROVIDERS: ATTEND Nurse Practitioner Family
DX: I27.21 Secondary pulmonary arterial hypertension (principal); R06.00 Dyspnea, unspecified
CPT/HCPCS: 94060; 94726; 94729

== ENCOUNTER → 2017-09-30 | Outpatient (CLI) | payer BC ==
[~2017-09-30] MED LIST changes: +CARV25TA PO; +DOXA2TAB2 PO; +ESTR1PAT75 TD; +FLUT15.88 NS
--- NOTE | 2017-09-30 17:19 | Diagnostic Imaging Report ---
INDICATION: Left shoulder pain x1 month. AP, oblique, and trans-scapular views of the left shoulder are obtained. There is no acute fracture or dislocation. There is degenerative change of the glenohumeral joint with joint space narrowing and osteophyte formation. There is also degenerative change of the AC joint with mild osteophyte formation. IMPRESSION: Degenerative changes as described above, most prominent in the glenohumeral joint. No acute fracture or dislocation. Dictated by: Dictated on workstation # [id number]
== END ==
LOC: RAD 16:14
PROVIDERS: ATTEND Nurse Practitioner Family
DX: M19.012 Primary osteoarthritis, left shoulder (principal)
CPT/HCPCS: 73030

== ENCOUNTER → 2018-04-24 | Outpatient (CLI) | payer BC ==
--- NOTE | 2018-04-24 12:10 | Diagnostic Imaging Report ---
INDICATION: Bilateral breast lumps. The patient reports lumps have not changed over the last several years. CORRELATION is made with prior mammogram from 04/02/2017 and 06/05/2016. 2-D and 3-D bilateral diagnostic mammography was performed with CAD. FINDINGS: Both breasts remain heterogeneously dense, limiting the sensitivity of mammography. The parenchymal pattern is stable. No mass or malignant appearing microcalcifications are seen. The axillae are unremarkable. IMPRESSION: BI-RADS category 1. No mammographic features suspicious for malignancy are identified. ACR BI-RADS Category 1: Negative. Result letter will be mailed to the patient. Note: At least 10% of breast cancer is not imaged by mammography. Dictated by: Dictated on workstation # [id number]
== END ==
LOC: RAD 09:28
PROVIDERS: ATTEND Nurse Practitioner Family
DX: N63.10 Unspecified lump in the right breast, unspecified quadrant (principal); N63.20 Unspecified lump in the left breast, unspecified quadrant
CPT/HCPCS: 77066

== ENCOUNTER → 2019-05-14 | Outpatient (CLI) | payer BC ==
[~2019-05-14] MED LIST changes: +FLUT15.845 NS; -FLUT15.88 NS; +PROG100C11 PO; -PROG100C6 PO
== END ==
LOC: CARD 13:35
PROVIDERS: ATTEND Internal Medicine Cardiovascular Disease
DX: I65.29 Occlusion and stenosis of unspecified carotid artery (principal); I11.9 Hypertensive heart disease without heart failure; G47.33 Obstructive sleep apnea (adult) (pediatric)
CPT/HCPCS: 93306

== ENCOUNTER → 2019-09-11 | Outpatient (CLI) | payer BC ==
--- NOTE | 2019-09-11 19:18 | Diagnostic Imaging Report ---
INDICATION: Bilateral breast lumps. EXAMINATION: Bilateral breast ultrasound, limited. FINDINGS: By history, the patient has palpable abnormalities in both breasts. The diagnostic mammogram performed prior to this study failed to show any sign of malignancy. On this exam, the areas of concern were evaluated. This included the 2 o'clock position of the right breast in the 8-9 o'clock position of the left breast. There is no discrete solid or cystic mass in either area. There is no sign of an abscess either. If clinical concern regarding an underlying mass persists, then biopsy should still be considered. IMPRESSION: There is no evidence for malignancy or for an acute abnormality. Clinical follow-up is recommended. ACR BI-RADS Category 1: Negative. Result letter will be mailed to the patient. Note: At least 10% of breast cancer is not imaged by mammography. Dictated by: Dictated on workstation # [id number]
--- NOTE | 2019-09-11 22:50 | Diagnostic Imaging Report ---
Bilateral diagnostic mammogram INDICATION: Bilateral breast lumps and bilateral breast pain The current study was also evaluated with a Computer Aided Detection (CAD) system. This study was compared to the prior exam of 04/24/2018, 04/02/2017 and 06/05/2016. At this time, the patient does complain of lumps in both breasts as well as bilateral breast pain. The fibroglandular tissue in both breasts is heterogeneously dense. This does limit the sensitivity of this exam. Overall, there does not appear to have been any significant change. There is no primary or secondary sign of malignancy noted. There is no abnormality to account for the patient's breast pain either. IMPRESSION: 1. There is no evidence for malignancy or for an acute abnormality of either breast. 2. Ultrasound of both breasts is pending for further study. ACR BI-RADS Category 0 : Needs additional imaging Result letter will be mailed to the patient. Note: At least 10% of breast cancer is not imaged by mammography. Dictated by: Dictated on workstation # [id number]
== END ==
LOC: RAD 13:33
PROVIDERS: ATTEND Nurse Practitioner Family
DX: Z12.31 Encounter for screening mammogram for malignant neoplasm of breast (principal); N63.20 Unspecified lump in the left breast, unspecified quadrant; N63.10 Unspecified lump in the right breast, unspecified quadrant; N60.09 Solitary cyst of unspecified breast
CPT/HCPCS: 76642; 77066; G0279; 77062

== ENCOUNTER → 2020-04-15 | Outpatient (CLI) | payer BC, MEDICARE ==
[~2020-04-15] MED LIST changes: +CLN.1T PO; +CLN.2T PO; -CLON0.1T PO; -CLON0.2T PO
--- NOTE | 2020-04-15 13:31 | Diagnostic Imaging Report ---
PROCEDURE: US Thyroid. TECHNIQUE: Multiple real-time grayscale images were obtained of the thyroid in various projections. INDICATION: Bilateral thyroid nodules. COMPARISON: Comparison is made to prior thyroid ultrasound from 07/08/2014. FINDINGS: Right lobe of the thyroid measures 4.7 x 1.6 x 1.8 cm and left lobe measures 5.6 x 2.8 x 3.3 cm. Isthmus is 1 mm in thickness. Nodule in the right lobe upper pole measures 1.5 x 1.1 x 0.9 cm compared with 1.2 x 0.7 x 0.8 cm. This is solid. No microcalcifications are seen. Left lobe does contain a solid nodule measuring 4.4 x 3.4 x 3.1 cm. This compares with 4.2 x 2.4 x 2.6 cm on prior exam. No microcalcifications are seen. IMPRESSION: Bilateral thyroid nodules, largest on the left. Both nodules have shown mild increase in size when compared with prior ultrasound from June 2014. Dictated by: Dictated on workstation # [id number]
== END ==
LOC: RAD 12:34
PROVIDERS: ATTEND Nurse Practitioner Family
DX: E04.2 Nontoxic multinodular goiter (principal)
CPT/HCPCS: 76536

== ENCOUNTER → 2020-12-28 | Outpatient (CLI) | payer MEDICARE ==
[~2020-12-28] MED LIST changes: -CYAN50008 PO; +CYAN50009 PO; -LISI40TA PO; +LISI40TA9 PO; -SULF1TAB35 PO; +SULF1TAB38 PO
--- NOTE | 2020-12-28 13:45 | Diagnostic Imaging Report ---
INDICATION: Routine screening. COMPARISON is made with prior mammograms from 09/11/2019 and 04/24/2018. 2-D and 3-D bilateral screening mammography was performed with CAD. Both breasts are heterogeneously dense, limiting the sensitivity of mammography. The parenchymal pattern is stable. No mass or malignant-appearing microcalcifications are seen. Axillae are unremarkable. IMPRESSION: BI-RADS Category 1 No mammographic features suspicious for malignancy are identified. ACR BI-RADS Category 1: Negative. Result letter will be mailed to the patient. Note: At least 10% of breast cancer is not imaged by mammography. Dictated by: Dictated on workstation # [id number]
== END ==
LOC: RAD 09:39
PROVIDERS: ATTEND Nurse Practitioner Family
DX: Z12.31 Encounter for screening mammogram for malignant neoplasm of breast (principal)
CPT/HCPCS: 77063; 77067

== ENCOUNTER → 2021-07-10 | Outpatient (CLI) | payer MEDICARE | LOC: CARD 08:20 | PROVIDERS: ATTEND Internal Medicine Cardiovascular Disease | DX: I08.3 Combined rheumatic disorders of mitral, aortic and tricuspid valves (principal) | CPT/HCPCS: 93306 ==

== ENCOUNTER → 2021-07-14 | Outpatient (CLI) | payer MEDICARE, BC ==
[~2021-07-14] MED LIST changes: +CATHETER FLUSH 10 ML SYR IVP PRN; +REGADENOSON 0.4 MG/5 ML SYR (LEXISCAN) IV ONE
[2021-07-14 09:10] VITALS: BP 160/70
== END ==
LOC: CARD 07:45
PROVIDERS: ATTEND Internal Medicine Cardiovascular Disease
DX: R07.89 Other chest pain (principal)
CPT/HCPCS: 78452; 93017; A9502

== ENCOUNTER 2022-01-11 21:18 | Emergency (ER) | payer MEDICARE ==
[~2022-01-11 21:18] MED LIST changes: -CATHETER FLUSH 10 ML SYR IVP PRN; -REGADENOSON 0.4 MG/5 ML SYR (LEXISCAN) IV ONE
[2022-01-11 22:08] LABS: BASOPHILS % (AUTO) 0 % (0-10); EOSINOPHILS # (AUTO) 0.1 10^3/uL (0.0-0.3); EOSINOPHILS % (AUTO) 2 % (0-10); HEMATOCRIT 39 % (35-52); LYMPHOCYTES # (AUTO) 0.8 10^3/uL (1.0-4.0); LYMPHOCYTES % (AUTO) 15 % (12-44); MEAN CORPUSCULAR HEMOGLOBIN 29 pg (25-34); MEAN CORPUSCULAR HGB CONC 34 g/dL (32-36); MEAN CORPUSCULAR VOLUME 88 fL (80-99); MEAN PLATELET VOLUME 9.5 fL (9.0-12.2); MONOCYTES # (AUTO) 0.5 10^3/uL (0.0-1.0); MONOCYTES % (AUTO) 9 % (0-12); NEUTROPHILS # (AUTO) 4.1 10^3/uL (1.8-7.8); NEUTROPHILS % (AUTO) 74 % (42-75); PLATELET COUNT 158 10^3/uL (130-400); WHITE BLOOD COUNT 5.5 10^3/uL (4.3-11.0)
--- NOTE | 2022-01-11 22:14 | ED Chest Pain ---
General Chief Complaint: Chest Pain Stated Complaint: CHEST PAIN,SOA Nursing Triage Note: PT ARRIVAL TO ER FROM HOME VIA PRIVATE [facility]LE[facility] ITH COMPLAINT OF CHEST PAIN OFF AND ON SINCE YESTERDAY AFTER GETTING FLU VACCINE. PT SAW PCP TODAY WHO TOLD HER IT WAS MOST LIKELY DUE TO THE VACCINE. PT STATES THAT TONIGHT THE PAIN DIDN'T REALLY EASE UP SO THEY DECIDED TO COME TO THE ER TO BE ON THE SAFE SIDE. PAIN IS A COME NAD GO PAIN RATED AT A 6/10. (BINH IVORY APRN) History of Present Illness Date Seen by Provider: Jan 11, 2022 Time Seen by Provider: 22:05 Initial Comments Patient comes to the emergency department for chest heaviness that started Saturday evening after she received her flu vaccine. Also has had some body aches since that time. Saw her PCP today and told it was likely related to the vaccine. Tonight when she went to lay down the pain got worse into her back. Took 2 Aspirin at home prior to coming in. Denies shortness of breath per say but states that it feels hard to breathe at times. Reports that her pain is improving but has continued to persist right now. No history of cardiac issues in the past. States that she had a stress test done over the summer and was told that it was okay other then pulmonary hypertension. 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 Associated Symptoms: back pain; No diaphoresis, No dizziness, No fatigue, No headache, No heartburn, No nausea/vomiting, No shortness of breath (BINH IVORY APRN) Allergies and Home Medications Allergies Coded Allergies: No Known Drug Allergies (Unverified , 08/02/15) Patient Home Medication List Home Medication List Reviewed: Yes (BINH IVORY APRN) Ascorbic Acid (Vitamin C) 1,000 Mg Tablet.er, 1,000 MG PO DAILY, (Reported) Entered as Reported by: DANIELLE MOBLEY on 08/04/15 0962 Azithromycin (Azithromycin) 250 Mg Tablet, 250 MG PO DAILY Prescribed by: SELVIN SERVIN on 01/12/22 0239 Carvedilol (Carvedilol) 25 Mg Tablet, 25 MG PO BID Prescribed by: SELMA BATRES on 09/19/17 0930 Cholecalciferol (Vitamin D3) (Vitamin D3) 2,000 Unit Capsule, 2,000 UNIT PO DAILY, (Reported) Entered as Reported by: DANIELLE MOBLEY on 08/04/15951 Cyanocobalamin (Vitamin B-12) (Vitamin B12) 5,000 Mcg Tab.rapdis, 5,000 MCG PO DAILY, (Reported) Entered as Reported by: DANIELLE MOBLEY on 08/04/15951 Doxazosin Mesylate (Doxazosin Mesylate) 2 Mg Tablet, 4 MG PO BID Prescribed by: SELMA BATRES on 09/19/17 09 Estradiol (Estradiol Patch Weekly 0.025mg/hr) 1 Each Patch.tdk, 1 EACH TD WEDNESDAYS, (Reported) Entered as Reported by: MILES DONOHUE on 09/17/17 0835 Fluticasone Propionate (Fluticasone Propionate) 15.8 Ml [place].susp, 2 SPRAY NS DAILY, (Reported) Entered as Reported by: MILES DONOHUE on 09/17/17 0831 L. Acidophilus/Bifid. Animalis (Probiotic 5 Billion Cell Cap) 1 Each Cap.sprink, 1 EACH PO HS, (Reported) Entered as Reported by: DANIELLE MOBLEY on 08/04/15951 Levomefolate/Algal Oil ([place]plin-Algal Oil 7.5 mg Cap) 1 Each Capsule, 1 EACH PO DAILY, (Reported) Entered as Reported by: DANIELLE MOBLEY on 12/03/16 160 Lisinopril (Lisinopril) 40 Mg Tablet, 40 MG PO DAILY, (Reported) Entered as Reported by: DANIELLE MOBLEY on 08/04/15951 Multivitamin/Iron/Folic Acid (Centrum Adults Tablet) 1 Each Tablet, 1 EACH PO DAILY, (Reported) Entered as Reported by: DANIELLE MOBLEY on 12/03/16 160 [place] 3 Polyunsat Fatty Acids (Fish Oil 1,000 mg Capsule) 1,000 Mg Cap, 1,000 MG PO DAILY, (Reported) Entered as Reported by: DANIELLE MOBLEY on 08/04/15951 Paroxetine Mesylate (Brisdelle) 7.5 Mg Capsule, 7.5 MG PO HS, (Reported) Entered as Reported by: DANIELLE MOBLEY on 12/03/16 1608 S-Adenosylmethionine Sul Tosyl (Natalio-E) 400 Mg Tablet, 800 MG PO DAILY, (Reported) Entered as Reported by: DANIELLE MOBLEY on 08/04/15951 Thyroid,Pork ([place] Thyroid) 60 Mg Tablet, 60 MG PO DAILY, (Reported) Entered as Reported by: DANIELLE MOBLEY on 08/04/15951 [5 Mthf] , 1 TAB PO BID, (Reported) Entered as Reported by: DANIELLE MOBLEY on 08/04/15951 [Gsh Glutathione] , 250 MG PO AC&PC, (Reported) Entered as Reported by: DANIELLE MOBLEY on 08/04/15951 [Serenity] , 100 MG PO HS, (Reported) Entered as Reported by: DANIELLE MOBLEY on 08/04/15951 [glutithione] , 500 MG SQ /, (Reported) Entered as Reported by: DANIELLE MOBLEY on 12/03/161607 [gut cleanse] , 1 TAB PO BID, (Reported) Entered as Reported by: DANIELLE MOBLEY on 08/04/15951 Review of Systems Review of Systems Constitutional: No chills, No dizziness, No fever EENTM: No Symptoms Reported Respiratory: Denies Cough, Denies Shortness of Air, Denies Wheezing Cardiovascular: Chest Pain; Denies Irregular Heart Rate, Denies Lightheadedness, Denies Palpitations, Denies Syncope Gastrointestinal: Denies Abdominal Pain, Denies Diarrhea, Denies Nausea, Denies Vomiting Genitourinary: No Symptoms Reported Musculoskeletal: muscle pain (body aches) Skin: no symptoms reported Psychiatric/Neurological: No Symptoms Reported (BINH IVORY APRN) All Other Systems Reviewed Negative Unless Noted: Yes (BINH IVORY APRN) Past Lmqrkqc-Xfrbbn-Hutkdk Hx Patient Social History Tobacco Use?: No Use of E-Cig and/or Vaping dev: No Substance use?: No Alcohol Use?: No Pt feels they are or have been: No (BINH IVORY APRN) Immunizations Up To Date Influenza Vaccine Up-to-Date: Yes; Up-to-Date COVID19 Vaccine [employer] Machine Operator: KASSANDRA (BINH IVORY APRN) Seasonal Allergies Seasonal Allergies: Yes (BINH IVORY APRN) Past Medical History Surgeries: Yes (D&C, WISDOM TEETH, HERNIA, dxls) Tubal Ligation Respiratory: Yes Sleep Apnea Currently Using CPAP: Yes Cardiac: Yes Hypertension Neurological: No Reproductive Disorders: No Female Reproductive Disorders: Menstrual Problems Sexually Transmitted Disease: No HIV/AIDS: No Gastrointestinal: No Musculoskeletal: Yes (LYMES - JOINT PAIN) Arthritis Endocrine: No (LYMES DISEASE, NODULES ON THYROID) Cancer: No Psychosocial: Yes (NEEDLE PHOBIA) Anxiety Integumentary: No Blood Disorders: No (BINH IVORY APRN) Family Medical History Reviewed Nursing Family Hx (BINH IVORY APRN) Physical Exam Vital Signs Vital Signs - First Documented 01/11/22 21:22 Pulse 84 Resp 16 B/P (MAP) 174/94 (120) Pulse Ox 95 O2 Delivery Room Air (SELVIN GILMORE MD) Vital Signs Capillary Refill : Less Than 3 Seconds (BINH IVORY APRN) Height, Weight, BMI Height: 5'8.00" Weight: 145lbs. 0.0oz. 65.024062rd; 22.1 BMI Method:Stated General Appearance: No Apparent Distress, WD/WN Neck: Full Range of Motion, Normal Inspection, Non Tender, Supple Respiratory: Chest Non Tender, Lungs Clear, Normal Breath Sounds, No Accessory Muscle Use, No Respiratory Distress Cardiovascular: Regular Rate, Rhythm, No Edema Gastrointestinal: Normal Bowel Sounds, No Organomegaly, No Pulsatile Mass, Non Tender, Soft Extremity: Normal Capillary Refill, Normal Inspection, Normal Range of Motion Neurologic/Psychiatric: Alert, Oriented x3, No Motor/Sensory Deficits Skin: Normal Color, Warm/Dry (BINH IVORY APRN) Progress/Results/Core Measures Results/Orders Lab Results Laboratory Tests Test 01/11/22 21:32 01/11/22 22:41 Range/Units White Blood Count 5.5 4.3-11.0 10^3/uL Red Blood Count 4.42 3.80-5.11 10^6/uL Hemoglobin 13.0 11.5-16.0 g/dL Hematocrit 39 35-52 % Mean Corpuscular Volume 88 80-99 fL Mean Corpuscular Hemoglobin 29 25-34 pg Mean Corpuscular Hemoglobin Concent 34 32-36 g/dL Red Cell Distribution Width 12.0 10.0-14.5 % Platelet Count 158 130-400 10^3/uL Mean Platelet Volume 9.5 9.0-12.2 fL Immature Granulocyte % (Auto) 0 % Neutrophils (%) (Auto) 74 42-75 % Lymphocytes (%) (Auto) 15 12-44 % Monocytes (%) (Auto) 9 0-12 % Eosinophils (%) (Auto) 2 0-10 % Basophils (%) (Auto) 0 0-10 % Neutrophils # (Auto) 4.1 1.8-7.8 10^3/uL Lymphocytes # (Auto) 0.8 L 1.0-4.0 10^3/uL Monocytes # (Auto) 0.5 0.0-1.0 10^3/uL Eosinophils # (Auto) 0.1 0.0-0.3 10^3/uL Basophils # (Auto) 0.0 0.0-0.1 10^3/uL Immature Granulocyte # (Auto) 0.0 0.0-0.1 10^3/uL Prothrombin Time 12.2 12.2-14.7 SEC INR Comment 0.9 0.8-1.4 Activated Partial Thromboplast Time 28 24-35 SEC D-Dimer 0.78 H 0.00-0.49 UG/ML Sodium Level 140 135-145 MMOL/L Potassium Level 3.8 3.6-5.0 MMOL/L Chloride Level 105 98-107 MMOL/L Carbon Dioxide Level 23 21-32 MMOL/L Anion Gap 12 5-14 MMOL/L Blood Urea Nitrogen 11 7-18 MG/DL Creatinine 0.79 0.60-1.30 MG/DL Estimat Glomerular Filtration Rate 82 BUN/Creatinine Ratio 14 Glucose Level 106 H 70-105 MG/DL Calcium Level 9.4 8.5-10.1 MG/DL Corrected Calcium 8.5-10.1 MG/DL Magnesium Level 2.4 1.6-2.4 MG/DL Total Bilirubin 0.4 0.1-1.0 MG/DL Aspartate Amino Transf (AST/SGOT) 23 5-34 U/L Alanine Aminotransferase (ALT/SGPT) 21 0-55 U/L Alkaline Phosphatase 54 40-136 U/L Myoglobin 33.9 10.0-92.0 NG/ML Troponin I < 0.028 <0.028 NG/ML Total Protein 7.8 6.4-8.2 GM/DL Albumin 4.8 H 3.2-4.5 GM/DL Influenza Type A (RT-PCR) Not Detected Not Detecte Influenza Type B (RT-PCR) Not Detected Not Detecte SARS-CoV-2 RNA (RT-PCR) Not Detected Not Detecte (SELVIN GILMORE MD) My Orders Orders - SELVIN GILMORE MD Ekg Tracing (01/11/22 21:22) Cbc With Automated Diff (01/11/22 22:03) Magnesium (01/11/22 22:03) Chest 1 View, Ap/Pa Only (01/11/22 22:03) Comprehensive Metabolic Panel (01/11/22 22:03) Myoglobin Serum (01/11/22 22:03) Protime With Inr (01/11/22 22:03) Partial Thromboplastin Time (01/11/22 22:03) O2 (01/11/22 22:03) Monitor-Rhythm Ecg Trace Only (01/11/22 22:03) Ed Iv/Invasive Line Start (01/11/22 22:03) Troponin I Claire (01/11/22 22:03) Ondansetron Injection (Zofran Injectio (01/11/22 23:15) Lidocaine 2% Viscous 15 Ml (Xylocaine Vi (01/11/22 23:15) Antacid Suspension (Mylanta Suspension (01/11/22 23:15) Fibrin Degradation Products (01/12/22 00:21) Ct Angio Chest W (01/12/22 01:12) Iohexol Injection (Omnipaque 350 Mg/Ml 1 (01/12/22 02:00) Received Contrast (Hold Metformin- Contr (01/12/22 02:00) Ns (Ivpb) (Sodium Chloride 0.9% Ivpb Bag (01/12/22 02:00) Ketorolac Injection (Toradol Injection) (01/12/22 02:45) Azithromycin Tablet (Zithromax Tablet) (01/12/22 02:34) (SELVIN GILMORE MD) Medications Given in ED (SELVIN GILMORE MD) Vital Signs/I&O 01/11/22 01/12/22 21:22 02:33 Pulse 84 79 Resp 16 16 B/P (MAP) 174/94 (120) 151/83 Pulse Ox 95 97 O2 Delivery Room Air Room Air (SELVIN GILMORE MD) Blood Pressure Mean: 120 Progress Progress Note : Progress Note 2304: Report given to Dr. Servin to assume care. Labs pending at this time. (BINH IVORY APRN) Progress Note : Progress Note I assumed care of this patient from Maureen Clinton at the conclusion of her shift. Patient was given a GI cocktail as reflux was suspected because pain worsened when lying flat. GI cocktail did not improve her pain. Patient was further evaluated with D-dimer. D-dimer was elevated. Risks and benefits of CT scan were discussed with patient and she elected to proceed. CT revealed no evidence of pulmonary embolus. However. There was a left basilar consolidation with some small pleural effusion. Pneumonia was suspected and she was treated accordingly. See discharge instructions for further discussion. Toradol was given for pain. (SELVIN GILMORE MD) Initial ECG Impression Date: Jan 11, 2022 Initial ECG Impression Time: 21:27 Initial ECG Rate: 76 Initial ECG Rhythm: Normal Sinus Comment Sinus rhythm with no ST elevation or depression. No abnormal intervals or axis deviation. (SELVIN GILMORE MD) Diagnostic Imaging Diagonstic Imaging: CT Plain Films/CT/US/NM/MRI: chest Diagonstic Imaging: CT Plain Films/CT/US/NM/MRI: chest Comments CT angiogram chest viewed by me and statrad report reviewed. No pulmonary emboli were seen but there was consolidation and small pleural effusion in the left base. (SELVIN GILMOER MD) Departure Impression Primary Impression: Atypical chest pain Additional Impression: Left lower lobe pneumonia Qualified Codes: J18.9 - Pneumonia, unspecified organism Disposition: HOME, SELF-CARE Condition: Improved Departure-Patient Inst. Decision time for Depature: 02:36 (SELVIN GILMORE MD) Referrals: NANI MCCABE DO (PCP) Primary Care Physician SOURAV MCCABE, CHANG (Family) Primary Care Physician Patient Instructions: Chest Pain That Is Not Caused by the Heart (DC), Communi ty-Acquired Pneumonia in Adults Add. Discharge Instructions: Start your azithromycin antibiotic on Saturday morning. You may use Tylenol (acetaminophen) up to 1000 mg every 6 hours as needed for pain. You may additionally take ibuprofen up to 600 mg every 6 hours as needed. Ibuprofen will likely be the most effective treatment for pain. Take ibuprofen with food or milk to avoid stomach upset. Exercise deep breathing often and stay active, avoiding being sedentary for prolonged periods of time. If your symptoms have not completely resolved within 1 week, please follow-up with your primary care provider for further evaluation. Return to the emergency room if you have worsening symptoms despite following these instructions. All discharge instructions reviewed with patient and/or family. Voiced understanding. Scripts Azithromycin (Azithromycin) 250 Mg Tablet 250 MG PO DAILY, #4 TAB 0 Refills Start Saturday01/13/22 Prov: SELVIN GILMORE MD 01/12/22 ATTENDING PHYSICIAN NOTE: I was physically present as attending physician in the emergency department during the care of this patient. I assumed care of this patient at the conclusion of midlevel shift. See notes above. (SELVIN GILMORE MD) Copy Copies To 1: NANI MCCABE MARGARET E APRN Jan 11, 2022 22:14 SELVIN GILMORE MD Jan 12, 2022 02:39
[2022-01-11 22:19] LABS: ALBUMIN 4.8 GM/DL (3.2-4.5); CHLORIDE 105 MMOL/L (98-107); POTASSIUM 3.8 MMOL/L (3.6-5.0); SODIUM 140 MMOL/L (135-145)
[2022-01-11 22:20] LABS: CALCIUM 9.4 MG/DL (8.5-10.1)
[2022-01-11 22:21] LABS: GLUCOSE 106 MG/DL (70-105)
[2022-01-11 22:22] LABS: TOTAL PROTEIN 7.8 GM/DL (6.4-8.2)
[2022-01-11 22:23] LABS: CARBON DIOXIDE 23 MMOL/L (21-32)
[2022-01-11 22:24] LABS: BILIRUBIN,TOTAL 0.4 MG/DL (0.1-1.0)
[2022-01-11 22:25] LABS: ALKALINE PHOSPHATASE 54 U/L (40-136); CREATININE SERUM 0.79 MG/DL (0.60-1.30); GFR ESTIMATED 82
[2022-01-11 22:26] LABS: BUN/CREATININE RATIO 14
[2022-01-11 22:28] LABS: ALANINE AMINOTRANSFERASE 21 U/L (0-55); MAGNESIUM 2.4 MG/DL (1.6-2.4)
[2022-01-11] MEDS ORDERED: LIDOCAINE 2% VISCOUS 15 ML UDC PO ONE (23:15)
[2022-01-11] MEDS ORDERED: ANTACID SUSP 30 ML UDC (MYLANTA) PO ONE (23:15)
[2022-01-11] MEDS ORDERED: ONDANSETRON 4 MG/2 ML (SDV) Z0FRAN IVP ONE (23:15)
[2022-01-11 23:36] LABS: INR 0.9 (0.8-1.4); PROTHROMBIN TIME PATIENT 12.2 SEC (12.2-14.7)
[2022-01-12] MEDS ORDERED: IOHEXOL 350 MG/ML 100 ML (OMNIPAQUE 350) VIAL IV ONE (02:00)
[2022-01-12] MEDS ORDERED: HOLD METFORMIN - RECEIVED CONTRAST 20 ML VIAL IV SCH (02:00)
[2022-01-12] MEDS ORDERED: NS 100 ML (IVPB) BAG IV ONE (02:00)
[2022-01-12 02:33] VITALS: BP 151/83
[2022-01-12] MEDS ORDERED: AZITHROMYCIN 250 MG TAB (ZITHROMAX) PO STA (02:34)
[2022-01-12] MEDS ORDERED: AZIT250T12 PO (02:39)
[2022-01-12] MEDS ORDERED: KETOROLAC 30 MG/ML VIAL IVP ONE (02:45)
--- NOTE | 2022-01-12 06:35 | Diagnostic Imaging Report ---
PROCEDURE: CT angiography of the chest with contrast. TECHNIQUE: Multiple contiguous axial images were obtained through the chest after uneventful bolus administration of intravenous contrast. 3D reconstructed CTA MIP acquisitions were also performed. Auto Exposure Controls were utilized during the CT exam to meet ALARA standards for radiation dose reduction. INDICATION: Chest pain, shortness of breath There is some atelectasis at the left lung base and a small left pleural effusion. There are no pulmonary emboli seen. There is no right ventricular strain. Aorta is intact. There is no hilar or mediastinal lymphadenopathy. IMPRESSION: Left basilar consolidation with adjacent effusion. No evidence for pulmonary embolism. I agree with preliminary interpretation. Dictated by: Dictated on workstation # [id number]
--- NOTE | 2022-01-12 07:14 | Diagnostic Imaging Report ---
INDICATION: Chest pain Portable chest 10:13 PM There is some consolidation at the left lung base. Right lung is clear. Questionable small left effusion. IMPRESSION: Small area of consolidation and effusion left lung base. Dictated by: Dictated on workstation # [id number]
== END 2022-01-12 02:50 | disposition home or self-care (01) ==
LOC: EDUNIT# 21:18 → ER 21:20
DX: J18.1 Lobar pneumonia, unspecified organism (principal); R79.1 Abnormal coagulation profile; G47.30 Sleep apnea, unspecified; Z99.89 Dependence on other enabling machines and devices; Z20.822 Contact with and (suspected) exposure to COVID-19
CPT/HCPCS: 36415; 71045; 71275; 80053; 83735; 83874; 84484; 85025; 85379; 85610; 85730; 87636; 93005; 93041

== ENCOUNTER → 2022-02-01 | Outpatient (CLI) | payer MEDICARE ==
[~2022-02-01] MED LIST changes: +AZIT250T12 PO
--- NOTE | 2022-02-01 16:53 | Diagnostic Imaging Report ---
EXAMINATION: Chest 2 view. HISTORY: Pneumonia due to other specified bacteria. COMPARISON: 09/03/2017. FINDINGS: Heart size and pulmonary vasculature are normal. The lungs are clear without consolidation, pleural effusion, or pneumothorax. Degenerative changes of the thoracic spine. Osseous structures are otherwise intact. IMPRESSION: No acute radiographic abnormality in the chest. Dictated by: Dictated on workstation # [id number]
== END ==
LOC: RAD 10:54
PROVIDERS: ATTEND Nurse Practitioner Family
DX: J15.8 Pneumonia due to other specified bacteria (principal)
CPT/HCPCS: 71046

== ENCOUNTER 2022-06-06 05:42 | Outpatient (CLI) | payer MEDICARE ==
[~2022-06-06] VITALS: Ht 172.7 cm; Wt 71.1 kg
[2022-06-06] MEDS ORDERED: VITA100T8 PO (09:44)
[2022-06-06] MEDS ORDERED: AMLO-251 PO (09:44)
[2022-06-06] MEDS ORDERED: CETI10TA49 PO (09:44)
[2022-06-06] MEDS ORDERED: HYDR200T46 PO (09:44)
[2022-06-06] MEDS ORDERED: ROSU5TAB13 PO (09:44)
[2022-06-06] MEDS ORDERED: OMEG100032 PO (09:44)
[2022-06-06] MEDS ORDERED: PROG100C11 PO (09:44)
[2022-06-06] MEDS ORDERED: LIRA0.6P3 SQ (09:44)
[2022-06-06] MEDS ORDERED: DOXA4TAB2 PO (09:44)
[2022-06-06] MEDS ORDERED: ESTR-141 TD (09:44)
[2022-06-06] MEDS ORDERED: MONT-40 PO (09:44)
[2022-06-06] MEDS ORDERED: MAGN100T5 PO (09:44)
[2022-06-06] MEDS ORDERED: CARV25TA PO (09:44)
[2022-06-06] MEDS ORDERED: POTA99CA PO (09:44)
[2022-06-06] MEDS ORDERED: LEVO125T6 PO (09:44)
[2022-06-06] MEDS ORDERED: CHOL200074 PO (09:44)
== END 2022-06-06 09:47 | disposition home or self-care (01) ==
LOC: PREOP 05:42
PROVIDERS: ATTEND Surgery
DX: Z01.818 Encounter for other preprocedural examination (principal)

== ENCOUNTER 2022-06-13 10:27 | Day surgery (SDC) | payer MEDICARE ==
[~2022-06-13] VITALS: Ht 172 cm; Wt 71.1 kg
[~2022-06-13 10:27] MED LIST changes: +AMLO-251 PO; +CETI10TA49 PO; +CHOL200074 PO; +DOXA4TAB2 PO; +ESTR-141 TD; +HYDR200T46 PO; +LEVO125T6 PO; +MAGN100T5 PO; +MONT-40 PO; +OMEG100032 PO; +POTA99CA PO; +ROSU5TAB13 PO; +VITA100T8 PO
[2022-06-13] MEDS ORDERED: LACTATED RINGERS 1,000 ML IV STA (10:33)
[2022-06-13] MEDS ORDERED: LIDOCAINE JELLY 2% 6 ML SYRINGE MM PRN (10:45)
[2022-06-13 10:55] VITALS: BP 149/89
--- NOTE | 2022-06-13 11:06 | Progress Note-Pre Operative ---
Pre-Operative Progress Note Date of Available H&P: Jun 13, 2022 Date H&P Reviewed: Jun 13, 2022 Time H&P Reviewed: 10:30 History & Physical: No changes noted Pre-Operative Diagnosis: hx colon polyp EMILY BRAY MD Jun 13, 2022 11:06
--- NOTE | 2022-06-13 11:07 | Discharge Inst-Surgical ---
D/C Lap Instructions-ASA Follow Up Activity as tolerated High Fiber Diet 25g or more per day Avoid Alcohol, Caffeine, Spicy [place] and Acid foods. Drink 64 fluid oz or more of fluids per day. Symptoms to Report: Fever over 101 degree F, Nausea/Vomiting If any problems/questions: Contact your physician or go to Emergency Room EMILY BRAY MD Jun 13, 2022 11:07
[2022-06-13] MEDS ORDERED: ONDANSETRON 4 MG/2 ML (SDV) Z0FRAN IVP PRN (11:15)
[2022-06-13] MEDS ORDERED: ONDANSETRON 4 MG (ZOFRAN) ORAL DISSOLVE TAB PO PRN (11:15)
[2022-06-13] MEDS ORDERED: PROPOFOL INJECTION 50 ML IV ONE (11:36)
[2022-06-13] MEDS ORDERED: MIDAZOLAM 2 MG/2 ML (VERSED) VIAL ONE (11:36)
[2022-06-13] MEDS ORDERED: LIDOCAINE JELLY 2% 6 ML SYRINGE ONE (11:56)
[2022-06-13 12:31] VITALS: BP 101/59
[2022-06-13 12:36] VITALS: BP 120/60
[2022-06-13 12:40] VITALS: BP 120/60
--- NOTE | 2022-06-13 12:51 | Progress Note-Post Operative ---
Post-Operative Progess Note Surgeon (s)/Special Education Instructor (s) Surgeon EMILY BRAY MD Special Education Instructor: none Pre-Operative Diagnosis hx colon polyp Post-Operative Diagnosis mild chronic stage 2 ext and int hemorrhoids, pedunculated polyp rectum(3mm), mild sigmoid diverticulosis. Procedure & Operative Findings Date of Procedure 06/13/22 Procedure Performed/Findings colonoscopy with snare polypectomy Anesthesia Type mac Estimated Blood Loss Estimated blood loss (mL): minimal Specimens/Packing Specimens Removed rectal polyp EMILY BRAY MD Jun 13, 2022 12:51
[2022-06-13 13:10] VITALS: BP 129/62
[2022-06-13 13:22] VITALS: BP 129/62
--- NOTE | 2022-06-13 15:10 | Anesthesia-General Post-Op ---
MAC Patient Condition Mental Status/LOC: Same as Preop Cardiovascular: Satisfactory Nausea/Vomiting: Absent Respiratory: Satisfactory Pain: Controlled Complications: Absent Post Op Complications Complications None Follow Up Care/Instructions Patient Instructions None needed. Anesthesiology Discharge Order Discharge Order Patient is doing well, no complaints, stable vital signs, no apparent adverse anesthesia problems. No complications reported per nursing. LYLA FIELD CRNA Jun 13, 2022 15:10
--- NOTE | 2022-06-13 19:14 | OPERATIVE REPORT ---
DATE OF SERVICE: 06/13/2022 ATTENDING PRIMARY CARE PHYSICIAN: Dr. Carlos Davalos. PREOPERATIVE DIAGNOSIS: Screening colonoscopy with history of colon polyp. POSTOPERATIVE DIAGNOSES: Mild chronic stage II external and internal hemorrhoids, small pedunculated polyp of the rectum approximately 3-4 mm in size, mild sigmoid diverticulosis. PROCEDURE: Colonoscopy with snare polypectomy. SURGEON: Emily Bray MD ANESTHESIA: Monitored anesthesia care. ESTIMATED BLOOD LOSS: Minimal. FINDINGS: Mild chronic stage II external and internal hemorrhoids, small pedunculated polyp of the rectum approximately 3-4 mm in size, mild sigmoid diverticulosis. DISPOSITION: The patient tolerated the procedure well. INDICATIONS: The patient is a 66-year-old female known to us. We had done her last colonoscopy in 11/2016 where she was found to have pedunculated polyp of the rectum, 3-4 mm in size, which was removed and consistent with a benign tubular adenoma. She states that she is otherwise doing well, does not report any major issues with diarrhea, nor constipation as well as no red blood per rectum, nor any dark tarry stools. She also does not report any family history of colon cancer. DESCRIPTION OF PROCEDURE: The patient was brought to the endoscopy suite and laid in the left lateral decubitus position. After adequate IV pain and sedative medications and monitored anesthesia care, a digital rectal examination was performed, mild chronic stage II external and internal hemorrhoids identified not actively edematous nor inflamed and no bleeding. Normal sphincter tone was felt and there were no palpable masses. The endoscope was then intubated into the anus, rectum gently insufflated. The endoscope was then advanced through the valves of [place] of the rectum where a pedunculated polyp approximately 3 mm in size were identified and this was removed with a snare and electrocautery and suctioned through the endoscope and into the trap. Good hemostasis was observed. The endoscope was then advanced through the sigmoid colon where mild sigmoid diverticulosis identified. The endoscope was then advanced to the remainder of the descending, transverse and ascending colon to the cecum, which were normal. The endoscope was then slowly withdrawn while taking a second look and suctioning of residual air with no additional findings. The patient tolerated the procedure well. We will await the biopsy result. This is her second consecutive colonoscopy with a polyp; however, the last one was a tubular adenoma. However, due to the chronicity of the polyp, we may recommend a followup colonoscopy in the next 5-7 years. Job ID: [id number] DocumentID: [id number] Dictated Date: 06/13/2022 12:34:02 Community Organizer Date: 06/13/2022 19:12:00 Dictated By: EMILY BRAY MD
== END 2022-06-13 13:30 | disposition home or self-care (01) ==
LOC: ENDO 10:27
PROVIDERS: ATTEND Surgery
DX: Z12.11 Encounter for screening for malignant neoplasm of colon (principal); K51.40 Inflammatory polyps of colon without complications; K57.30 Diverticulosis of large intestine without perforation or abscess without bleeding; K64.1 Second degree hemorrhoids; K64.4 Residual hemorrhoidal skin tags; K42.9 Umbilical hernia without obstruction or gangrene

== ENCOUNTER → 2022-08-08 | Outpatient (CLI) | payer MEDICARE ==
--- NOTE | 2022-08-08 08:15 | Diagnostic Imaging Report ---
EXAMINATION: CT chest without contrast. TECHNIQUE: Multiple contiguous axial images were obtained through the chest without the use of intravenous contrast. All CT scans use one or more of the following dose optimizing techniques: automated exposure control, MA and/or KvP adjustment based on patient size and exam type or iterative reconstruction. HISTORY: Shortness of breath COMPARISON: 01/12/2022 FINDINGS: Thyroid: The thyroid gland is nonvisualized and may be surgically absent per patient history. Mediastinum: Heart size is normal with small pericardial effusion. The aorta is normal in caliber. No suspicious lymphadenopathy. Lungs and airways: The lungs are clear without consolidation, pleural effusion, or pneumothorax. There is a 0.4 cm left upper lobe pulmonary nodule (series 3 image 77). There is atelectasis or scarring within the dependent lungs. The airways are normal. Upper abdomen: The subphrenic structures are normal. Musculoskeletal: Degenerative changes of the spine without suspicious osseous lesion or compression fracture. IMPRESSION: 1. No acute abnormality in the chest. 2. A 0.4 cm left upper lobe pulmonary nodule. Consider followup CT of the chest in 6-12 months. Dictated by: Dictated on workstation # [id number]
== END ==
LOC: RAD 07:50
PROVIDERS: ATTEND Nurse Practitioner Family
DX: R91.1 Solitary pulmonary nodule (principal); R06.09 Other forms of dyspnea; Z87.01 Personal history of pneumonia (recurrent)
CPT/HCPCS: 71250

== ENCOUNTER → 2022-10-08 | Outpatient (CLI) | payer MEDICARE ==
[~2022-10-08] MED LIST changes: -HYDR200T46 PO; +HYDR200T71 PO
== END ==
LOC: CARD 10:19
PROVIDERS: ATTEND Nurse Practitioner Family
DX: I08.0 Rheumatic disorders of both mitral and aortic valves (principal); I27.20 Pulmonary hypertension, unspecified
CPT/HCPCS: 93306